=== PATIENT | male | born 1935 | race Caucasian/White ===

== ENCOUNTER 2017-04-17 20:31 | Inpatient (IN) | payer MEDICARE, OTHER ==
[~2017-04-17] VITALS: Ht 180.3 cm; Wt 84.4 kg
--- NOTE | 2017-04-17 20:41 | PHYS DOC ---
Adult General Chief Complaint Chief Complaint: hyponatremia HPI HPI Patient is a 82 year old male who presents with hyponatremia. According to EMS he had labs drawn showed a sodium of 110. Patient states he's had a history of pneumonia but is not being treated for. He denies any fevers chills nausea or vomiting. He wants to be at [facility] and does not know why he's at [facility]. He states it he's had a kiss mixer from [facility] in the past who has an ablation to help his A. fib and his A. fib returned and he developed a stroke from that. His daughter from [facility] who states he was just started on Prozac within 2-3 weeks ago. Review of Systems Review of Systems Constitutional: Denies fever or chills [] Eyes: Denies change in visual acuity, redness, or eye pain [] HENT: Denies nasal congestion or sore throat [] Respiratory: Denies cough or shortness of breath [] Cardiovascular: No additional information not addressed in HPI [] GI: Denies abdominal pain, nausea, vomiting, bloody stools or diarrhea [] : Denies dysuria or hematuria [] Musculoskeletal: Denies back pain or joint pain [] Integument: Denies rash or skin lesions [] Neurologic: Denies headache, focal weakness or sensory changes [] Endocrine: Denies polyuria or polydipsia [] Current Medications Current Medications Allergies Allergies Allergies Coded Allergies Type Severity Reaction Last Updated Verified erythromycin base Allergy Intermediate Rash 04/17/17 Yes niacin Allergy Intermediate Rash 04/17/17 Yes tetracycline Allergy Intermediate Rash 04/17/17 Yes Physical Exam Physical Exam Constitutional: Well developed, well nourished, no acute distress, non-toxic appearance. [] HENT: Normocephalic, atraumatic, bilateral external ears normal, oropharynx moist, no oral exudates, nose normal. [] Eyes: PERRLA, EOMI, conjunctiva normal, no discharge. [] Neck: Normal range of motion, no tenderness, supple, no stridor. [] Cardiovascular:Heart rate regular rhythm, no murmur [] Lungs & Thorax: Bilateral breath sounds clear to auscultation [] Abdomen: Bowel sounds normal, soft, no tenderness, no masses, no pulsatile masses. [] Skin: Warm, dry, no erythema, no rash. [] Back: No tenderness, no CVA tenderness. [] Extremities: No tenderness, no cyanosis, no clubbing, ROM intact, no edema. [] Neurologic: Alert and interactive, very stroke with left-sided deficit noted. Psychologic: Affect normal, judgement normal, mood normal. [] Current Patient Data Vital Signs Vital Signs Date Time Temp Pulse Resp B/P (MAP) Pulse Ox O2 Delivery O2 Flow Rate FiO2 04/17/17 20:35 97.8 55 18 143/67 (92) 93 Room Air 97.8 Lab Values Laboratory Tests Test 04/17/17 20:40 White Blood Count 5.8 x10^3/uL (4.0-11.0) Red Blood Count 4.30 x10^6/uL (4.30-5.70) Hemoglobin 13.4 g/dL (13.0-17.5) Hematocrit 39.6 % (39.0-53.0) Mean Corpuscular Volume 92 fL (79-100) Mean Corpuscular Hemoglobin 31 pg (25-35) Mean Corpuscular Hemoglobin Concent 34 g/dL (31-37) Red Cell Distribution Width 14.0 % (11.5-14.5) Platelet Count 211 x10^3/uL (140-400) Neutrophils (%) (Auto) 64 % (31-73) Lymphocytes (%) (Auto) 21 % (24-48) L Monocytes (%) (Auto) 10 % (0-9) H Eosinophils (%) (Auto) 5 % (0-3) H Basophils (%) (Auto) 1 % (0-3) Neutrophils # (Auto) 3.7 x10^3uL (1.8-7.7) Lymphocytes # (Auto) 1.2 x10^3/uL (1.0-4.8) Monocytes # (Auto) 0.6 x10^3/uL (0.0-1.1) Eosinophils # (Auto) 0.3 x10^3/uL (0.0-0.7) Basophils # (Auto) 0.1 x10^3/uL (0.0-0.2) Prothrombin Time 14.6 SEC (11.7-14.0) H Prothrombin Time INR 1.2 (0.8-1.1) H Sodium Level 121 mmol/L (136-145) L Potassium Level 4.8 mmol/L (3.5-5.1) Chloride Level 86 mmol/L (98-107) L Carbon Dioxide Level 32 mmol/L (21-32) Anion Gap 3 (6-14) L Blood Urea Nitrogen 25 mg/dL (8-26) Creatinine 0.8 mg/dL (0.7-1.3) Estimated GFR (Cockcroft-Gault) 93.0 Glucose Level 93 mg/dL (70-99) Calcium Level 8.9 mg/dL (8.5-10.1) Magnesium Level 1.8 mg/dL (1.8-2.4) Total Bilirubin 0.6 mg/dL (0.2-1.0) Direct Bilirubin 0.2 mg/dL (0.0-0.2) Aspartate Amino Transferase (AST) 27 U/L (15-37) Alanine Aminotransferase (ALT) 45 U/L (16-63) Alkaline Phosphatase 98 U/L (46-116) Creatine Kinase 96 U/L (39-308) Creatine Kinase MB (Mass) 7.1 ng/mL (0.0-3.6) H Creatine Kinase MB Relative Index 7.4 % (0-4) H Troponin I Quantitative < 0.017 ng/mL (0.000-0.055) PJ-Cpv-V-Type Natriuretic Peptide 225 pg/mL (0-449) Total Protein 7.3 g/dL (6.4-8.2) Albumin 3.1 g/dL (3.4-5.0) L Thyroid Stimulating Hormone (TSH) 9.650 uIU/mL (0.358-3.74) H Laboratory Tests 04/17/17 20:40 Laboratory Tests 04/17/17 20:40 EKG EKG EKG shows irregular rhythm with rate of 61 bpm without any associated elevations or T-wave inversions, left axis noted, QTC 453 ms, as interpreted by me. Radiology/Procedures Radiology/Procedures [] Impressions: Hyponatremia Anoxic brain injury Hypertension A. fib PEG tube dependent feedings Course & Med Decision Making Course & Med Decision Making Pertinent Labs and Imaging studies reviewed. (See chart for details) Upon review of his med list he is on Prozac. His lips are extremely dry. He is being started on 100 mL of normal saline per hour per Dr. Olivia's request and being admitted to the hospital with nephrology consultation. Spoke with Dr. Mccarty regarding consultation for his hypo-nature anemia. Dragon Disclaimer Dragon Disclaimer This electronic medical record was generated, in whole or in part, using a voice recognition dictation system. CHIRAG GARG MD Apr 17, 2017 20:41
[2017-04-17 20:46] LABS: BASO # 0.1 x10^3/uL (0.0-0.2); BASO % 1 % (0-3); EOS % 5 % (0-3); HEMATOCRIT 39.6 % (39.0-53.0); HEMOGLOBIN 13.4 g/dL (13.0-17.5); LYMPH # 1.2 x10^3/uL (1.0-4.8); LYMPH % 21 % (24-48); MEAN CORPUSCULAR HEMOGLOBIN 31 pg (25-35); MEAN CORPUSCULAR HGB CONC 34 g/dL (31-37); MEAN CORPUSCULAR VOLUME 92 fL (79-100); MONO % 10 % (0-9); NEUT % 64 % (31-73); PLATELET COUNT 211 x10^3/uL (140-400); WHITE BLOOD COUNT 5.8 x10^3/uL (4.0-11.0)
[2017-04-17 21:08] LABS: CALCIUM 8.9 mg/dL (8.5-10.1); CREATININE 0.8 mg/dL (0.7-1.3); POTASSIUM 4.8 mmol/L (3.5-5.1)
[2017-04-17 21:10] LABS: INR 1.2 (0.8-1.1); PROTHROMBIN TIME PATIENT 14.6 SEC (11.7-14.0)
[2017-04-17 21:14] LABS: ALBUMIN 3.1 g/dL (3.4-5.0); DIRECT BILIRUBIN 0.2 mg/dL (0.0-0.2); MAGNESIUM 1.8 mg/dL (1.8-2.4); TOTAL BILIRUBIN 0.6 mg/dL (0.2-1.0); TOTAL PROTEIN 7.3 g/dL (6.4-8.2)
[2017-04-17 21:24] LABS: CKMB MASS 7.1 ng/mL (0.0-3.6)
[2017-04-17] MEDS ORDERED: IV NORMAL SALINE 1000ML BAG 1,000 ML IV ONE (21:45)
[2017-04-17] MEDS ORDERED: GABA600T2 PO (21:56)
[2017-04-17] MEDS ORDERED: BUSP5TAB PO (21:56)
[2017-04-17] MEDS ORDERED: GUAI473L15 PO (21:56)
[2017-04-17] MEDS ORDERED: DIGO250T17 PO (21:56)
[2017-04-17] MEDS ORDERED: FLUT9.9S NS (21:56)
[2017-04-17] MEDS ORDERED: DICL100G18 TP (21:56)
[2017-04-17] MEDS ORDERED: APIX5TAB PO (21:56)
[2017-04-17] MEDS ORDERED: HYDR1.5C TP (21:56)
[2017-04-17] MEDS ORDERED: ACET500T68 PO (21:56)
[2017-04-17] MEDS ORDERED: CHLO15MO2 PO (21:56)
[2017-04-17] MEDS ORDERED: MELA3TAB2 PO (21:56)
[2017-04-17] MEDS ORDERED: LACT1CAP21 PO (21:56)
[2017-04-17] MEDS ORDERED: AMIO200T2 PO (21:56)
[2017-04-17] MEDS ORDERED: METO25TA4 PO (22:22)
[2017-04-17] MEDS ORDERED: ASCO500T3 PO (22:22)
[2017-04-17] MEDS ORDERED: SIME80TA14 PO (22:22)
[2017-04-17] MEDS ORDERED: POLY17PO29 PO (22:22)
[2017-04-17] MEDS ORDERED: MODA100T2 PO (22:22)
[2017-04-17] MEDS ORDERED: PANT40TA5 PO (22:22)
[2017-04-17] MEDS ORDERED: TURM1TAB PO (22:22)
[2017-04-17] MEDS ORDERED: ACET600C3 PO (22:22)
[2017-04-17 23:10] VITALS: BP 116/67
[2017-04-18] VITALS (24 sets, daily range): BP systolic 106–166; BP diastolic 50–72
[2017-04-18] MEDS ORDERED: fentaNYL PF VIAL 100 MCG/2 ML VIAL IV PRN ×2 (00:30→01:00)
[2017-04-18] MEDS: GABAPENTIN 250 MG/5 ML ORAL SOLUTION. PEG SCH ×4 (01:02→20:59)
[2017-04-18 06:29] LABS: BASO % 1 % (0-3); EOS % 5 % (0-3); HEMATOCRIT 39.7 % (39.0-53.0); HEMOGLOBIN 13.5 g/dL (13.0-17.5); LYMPH # 1.1 x10^3/uL (1.0-4.8); LYMPH % 19 % (24-48); MEAN CORPUSCULAR HEMOGLOBIN 32 pg (25-35); MEAN CORPUSCULAR HGB CONC 34 g/dL (31-37); MEAN CORPUSCULAR VOLUME 93 fL (79-100); MONO % 12 % (0-9); NEUT % 64 % (31-73); PLATELET COUNT 184 x10^3/uL (140-400); RED BLOOD COUNT 4.28 x10^6/uL (4.30-5.70); RED CELL DISTRIBUTION WIDTH 13.8 % (11.5-14.5); WHITE BLOOD COUNT 5.9 x10^3/uL (4.0-11.0)
[2017-04-18 06:40] LABS: CALCIUM 8.9 mg/dL (8.5-10.1); CREATININE 0.8 mg/dL (0.7-1.3); POTASSIUM 4.3 mmol/L (3.5-5.1)
--- NOTE | 2017-04-18 08:13 | RAD ---
Portable chest, 04/17/2017: History: Altered mental status The heart size and pulmonary vascularity are normal. The lungs are clear. There is no evidence of pleural fluid. Mild spurring is present in the spine. IMPRESSION: No acute cardiopulmonary abnormality is detected.
[2017-04-18] MEDS ORDERED: IV NORMAL SALINE 1000ML BAG 1,000 ML IV ONE (09:00)
[2017-04-18] MEDS ORDERED: HYDROCORTISONE 1% TOPICAL OINTMENT 30GM TUBE. TP PRN (10:45)
[2017-04-18] MEDS ORDERED: PANTOPRAZOLE 40 MG TABLET.DR. PO SCH (11:00)
[2017-04-18] MEDS ORDERED: busPIRone 5 MG TABLET. PO SCH (11:00)
[2017-04-18] MEDS ORDERED: ASCORBIC ACID 500 MG TABLET PO SCH (11:00)
[2017-04-18] MEDS: FLUTICASONE 50MCG/NASAL SPRAY 16GM BOTTLE. NS SCH (11:00)
[2017-04-18] MEDS ORDERED: AMIODARONE HCL 200 MG TABLET. PO SCH (11:00)
[2017-04-18] MEDS ORDERED: DIGOXIN 250 MCG TABLET. PO SCH (11:00)
[2017-04-18] MEDS ORDERED: ACETAMINOPHEN 500 MG TABLET PO SCH (11:00)
[2017-04-18] MEDS ORDERED: METOPROLOL TART IMMED RELEASE 25 MG TABLET. PO SCH (11:00)
--- NOTE | 2017-04-18 11:07 | PDOC2 ---
CONSULT Date of Consult Date of Consult DATE: 04/18/17 TIME: 10:47 Reason for Consult Reason for Consult: HypoNatremia Referring Physician Referring Physician: Dr Olivia Source Source: Patient Current Medications Current Medications Current Medications Sodium Chloride 1,000 ml @ 100 mls/hr 1X ONCE IV Last administered on 21:58; Start 04/17/17 at 21:45; Stop 04/18/17 at 07:44; Status DC Gabapentin (Neurontin) 500 mg [id number] PEG Last administered on 04/18/17 09:51; Start 04/18/17 at 01:00 Fentanyl Citrate (Fentanyl 2ml Vial) 25 mcg PRN Q3HRS PRN IV PAIN Last administered on 04/18/17 01:03; Start 04/18/17 at 00:30 Fentanyl Citrate (Fentanyl 2ml Vial) 50 mcg PRN Q3HRS PRN IV PAIN; Start at 01:00 Sodium Chloride 1,000 ml @ 100 mls/hr 1X ONCE IV Last administered on 09:51; Start 04/18/17 at 09:00; Stop 04/18/17 at 18:59 Active Scripts Active Reported Ascorbic Acid 500 Mg Tablet 500 Mg PO Tumersaid Tablet (Turm/Ging/Ej/Yuc/Darrick/Tatyana/Hor) 1 Each Tablet 1 Each PO Simethicone 80 Mg Tab.chew 80 Mg PO Pantoprazole Sodium 40 Mg Tablet. 1 Tab PO DAILY M-Ojuviv-V-Cysteine (Acetylcysteine) 600 Mg Capsule 600 Mg PO Modafinil 100 Mg Tablet 100 Mg PO Miralax (Polyethylene Glycol 3350) 17 Gm Powd.pack 1 Packet PO DAILY Metoprolol Tartrate 25 Mg Tablet 1 Tab PO BID Melatonin 3 Mg Tablet 5 Mg PO Lanoxin (Digoxin) 250 Mcg Tablet 1 Tab PO DAILY Culturelle (Lactobacillus Rhamnosus Gg) 1 Each Capsule 1 Each PO Hydrocortisone 1.5 Gm Cream.pack 1.5 Gm TP Guaifenesin Ac Cough Syrup (Guaifenesin/Codeine Phosphate) 473 Ml Liquid 5 Ml PO Q4HRS Gabapentin 600 Mg Tablet 600 Mg PO TID Flonase Allergy Relief (Fluticasone Propionate) 9.9 Ml [place].susp 2 Sprays NS DAILY Eliquis (Apixaban) 5 Mg Tablet 5 Mg PO Voltaren (Diclofenac Sodium) 100 Gm Gel..gram. 1 Gm TP QID Peridex (Chlorhexidine Gluconate) 15 Ml Mouthwash 15 Ml PO BID Buspirone Hcl 5 Mg Tablet 1 Tab PO BID Amiodarone Hcl 200 Mg Tablet 1 Tab PO DAILY Acetaminophen 500 Mg Tablet 1 Tab PO BID Allergies Allergies: Coded Allergies: erythromycin base (Verified Allergy, Intermediate, Rash, 04/17/17) RASH BETWEEN TESTICLES AND "I GET VERY HOT" niacin (Verified Allergy, Intermediate, Rash, 04/17/17) RASH BETWEEN TESTICLES AND "I GET VERY HOT" tetracycline (Verified Allergy, Intermediate, Rash, 04/17/17) RASH BETWEEN TESTICLES AND "I GET VERY HOT" ROS Review of System Pt is [id number] with ROS and often uses expletives during my conversation - keeps asking for a Dr Garcia Physical Exam Physical Exam General Appearance: Awake Alert Oriented x ? In no Distress Eyes: VIsion Unchanged Conjunctiva Normal EN: No EN Drainage Mucous Memb. moist Neck: no JVD no JVP Supple no Thyromegaly CVS: S1 S2 no Murmur No Gallop No Rub no Edema Resp: no Rales no Rhonchi no Acc. Muscle use GI: BAS +ve NO Bruit Non Tender Non Distended : no CVA tenderness; ? Suprapubic Tenderness SKIN: no visible petechial Rashes Breast Exam deferred Mu.Sk: limited ROM + Muscle Atrophy - does not follow commands well Heme: Unable to palpate Obvious LAD nopalp Splenomegaly NEURO: Good Strength on the rt upper ext ; left sided ? Hemiparesis; Psych: ? Depressed no Active hallucination - unable to accurately assess given lack of co-operation Vital Signs Vital Signs Date Time Temp Pulse Resp B/P (MAP) Pulse Ox O2 Delivery O2 Flow Rate FiO2 04/18/17 10:00 58 18 139/70 (93) 97 Nasal Cannula 3.0 04/18/17 08:00 98.3 98.3 Assessment & Plan hypoNatremia - presumably due to recent initiation of SSRi on - Na was WNL prior to that. Appears to have corrected slightly from Prior reported levels of 118. Was 120 on the last labs on 04/06 as noted from [facility] reports. TSH noted to be AbN - if no further improvement with IV NS then he may need some 3% . Given some chronicity - I would like to correct this slowly at 6-8 mEq/day. Labs Labs Laboratory Tests Test 04/17/17 20:40 04/18/17 03:45 White Blood Count 5.8 x10^3/uL (4.0-11.0) 5.9 x10^3/uL (4.0-11.0) Red Blood Count 4.30 x10^6/uL (4.30-5.70) 4.28 x10^6/uL (4.30-5.70) Hemoglobin 13.4 g/dL (13.0-17.5) 13.5 g/dL (13.0-17.5) Hematocrit 39.6 % (39.0-53.0) 39.7 % (39.0-53.0) Mean Corpuscular Volume 92 fL (79-100) 93 fL (79-100) Mean Corpuscular Hemoglobin 31 pg (25-35) 32 pg (25-35) Mean Corpuscular Hemoglobin Concent 34 g/dL (31-37) 34 g/dL (31-37) Red Cell Distribution Width 14.0 % (11.5-14.5) 13.8 % (11.5-14.5) Platelet Count 211 x10^3/uL (140-400) 184 x10^3/uL (140-400) Neutrophils (%) (Auto) 64 % (31-73) 64 % (31-73) Lymphocytes (%) (Auto) 21 % (24-48) 19 % (24-48) Monocytes (%) (Auto) 10 % (0-9) 12 % (0-9) Eosinophils (%) (Auto) 5 % (0-3) 5 % (0-3) Basophils (%) (Auto) 1 % (0-3) 1 % (0-3) Neutrophils # (Auto) 3.7 x10^3uL (1.8-7.7) 3.8 x10^3uL (1.8-7.7) Lymphocytes # (Auto) 1.2 x10^3/uL (1.0-4.8) 1.1 x10^3/uL (1.0-4.8) Monocytes # (Auto) 0.6 x10^3/uL (0.0-1.1) 0.7 x10^3/uL (0.0-1.1) Eosinophils # (Auto) 0.3 x10^3/uL (0.0-0.7) 0.3 x10^3/uL (0.0-0.7) Basophils # (Auto) 0.1 x10^3/uL (0.0-0.2) 0.0 x10^3/uL (0.0-0.2) Prothrombin Time 14.6 SEC (11.7-14.0) Prothromb Time International Ratio 1.2 (0.8-1.1) Sodium Level 121 mmol/L (136-145) 121 mmol/L (136-145) Potassium Level 4.8 mmol/L (3.5-5.1) 4.3 mmol/L (3.5-5.1) Chloride Level 86 mmol/L (98-107) 88 mmol/L (98-107) Carbon Dioxide Level 32 mmol/L (21-32) 28 mmol/L (21-32) Anion Gap 3 (6-14) 5 (6-14) Blood Urea Nitrogen 25 mg/dL (8-26) 22 mg/dL (8-26) Creatinine 0.8 mg/dL (0.7-1.3) 0.8 mg/dL (0.7-1.3) Estimated GFR (Cockcroft-Gault) 93.0 93.0 Glucose Level 93 mg/dL (70-99) 74 mg/dL (70-99) Calcium Level 8.9 mg/dL (8.5-10.1) 8.9 mg/dL (8.5-10.1) Magnesium Level 1.8 mg/dL (1.8-2.4) Total Bilirubin 0.6 mg/dL (0.2-1.0) Direct Bilirubin 0.2 mg/dL (0.0-0.2) Aspartate Amino Transf (AST/SGOT) 27 U/L (15-37) Alanine Aminotransferase (ALT/SGPT) 45 U/L (16-63) Alkaline Phosphatase 98 U/L (46-116) Creatine Kinase 96 U/L (39-308) Creatine Kinase MB (Mass) 7.1 ng/mL (0.0-3.6) Creatine Kinase MB Relative Index 7.4 % (0-4) Troponin I Quantitative < 0.017 ng/mL (0.000-0.055) LM-Jbl-K-Type Natriuretic Peptide 225 pg/mL (0-449) Total Protein 7.3 g/dL (6.4-8.2) Albumin 3.1 g/dL (3.4-5.0) Thyroid Stimulating Hormone (TSH) 9.650 uIU/mL (0.358-3.74) Laboratory Tests Test 04/17/17 20:40 04/18/17 03:45 White Blood Count 5.8 x10^3/uL (4.0-11.0) 5.9 x10^3/uL (4.0-11.0) Red Blood Count 4.30 x10^6/uL (4.30-5.70) 4.28 x10^6/uL (4.30-5.70) Hemoglobin 13.4 g/dL (13.0-17.5) 13.5 g/dL (13.0-17.5) Hematocrit 39.6 % (39.0-53.0) 39.7 % (39.0-53.0) Mean Corpuscular Volume 92 fL (79-100) 93 fL (79-100) Mean Corpuscular Hemoglobin 31 pg (25-35) 32 pg (25-35) Mean Corpuscular Hemoglobin Concent 34 g/dL (31-37) 34 g/dL (31-37) Red Cell Distribution Width 14.0 % (11.5-14.5) 13.8 % (11.5-14.5) Platelet Count 211 x10^3/uL (140-400) 184 x10^3/uL (140-400) Neutrophils (%) (Auto) 64 % (31-73) 64 % (31-73) Lymphocytes (%) (Auto) 21 % (24-48) 19 % (24-48) Monocytes (%) (Auto) 10 % (0-9) 12 % (0-9) Eosinophils (%) (Auto) 5 % (0-3) 5 % (0-3) Basophils (%) (Auto) 1 % (0-3) 1 % (0-3) Neutrophils # (Auto) 3.7 x10^3uL (1.8-7.7) 3.8 x10^3uL (1.8-7.7) Lymphocytes # (Auto) 1.2 x10^3/uL (1.0-4.8) 1.1 x10^3/uL (1.0-4.8) Monocytes # (Auto) 0.6 x10^3/uL (0.0-1.1) 0.7 x10^3/uL (0.0-1.1) Eosinophils # (Auto) 0.3 x10^3/uL (0.0-0.7) 0.3 x10^3/uL (0.0-0.7) Basophils # (Auto) 0.1 x10^3/uL (0.0-0.2) 0.0 x10^3/uL (0.0-0.2) Prothrombin Time 14.6 SEC (11.7-14.0) Prothromb Time International Ratio 1.2 (0.8-1.1) Sodium Level 121 mmol/L (136-145) 121 mmol/L (136-145) Potassium Level 4.8 mmol/L (3.5-5.1) 4.3 mmol/L (3.5-5.1) Chloride Level 86 mmol/L (98-107) 88 mmol/L (98-107) Carbon Dioxide Level 32 mmol/L (21-32) 28 mmol/L (21-32) Anion Gap 3 (6-14) 5 (6-14) Blood Urea Nitrogen 25 mg/dL (8-26) 22 mg/dL (8-26) Creatinine 0.8 mg/dL (0.7-1.3) 0.8 mg/dL (0.7-1.3) Estimated GFR (Cockcroft-Gault) 93.0 93.0 Glucose Level 93 mg/dL (70-99) 74 mg/dL (70-99) Calcium Level 8.9 mg/dL (8.5-10.1) 8.9 mg/dL (8.5-10.1) Magnesium Level 1.8 mg/dL (1.8-2.4) Total Bilirubin 0.6 mg/dL (0.2-1.0) Direct Bilirubin 0.2 mg/dL (0.0-0.2) Aspartate Amino Transf (AST/SGOT) 27 U/L (15-37) Alanine Aminotransferase (ALT/SGPT) 45 U/L (16-63) Alkaline Phosphatase 98 U/L (46-116) Creatine Kinase 96 U/L (39-308) Creatine Kinase MB (Mass) 7.1 ng/mL (0.0-3.6) Creatine Kinase MB Relative Index 7.4 % (0-4) Troponin I Quantitative < 0.017 ng/mL (0.000-0.055) OR-Bsn-D-Type Natriuretic Peptide 225 pg/mL (0-449) Total Protein 7.3 g/dL (6.4-8.2) Albumin 3.1 g/dL (3.4-5.0) Thyroid Stimulating Hormone (TSH) 9.650 uIU/mL (0.358-3.74) HERB BOWSER MD Apr 18, 2017 11:07
[2017-04-18] MEDS: IV NORMAL SALINE 1000ML BAG 1,000 ML IV SCH ×2 (11:15→20:55)
--- NOTE | 2017-04-18 11:54 | EKG ---
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
[2017-04-18] MEDS ORDERED: SCOPOLAMINE 1.5MG PATCH. TD SCH (12:00)
[2017-04-18] MEDS ORDERED: guaiFENesin/CODEINE 100mg/10mg 5 ML LIQUID PO SCH (12:00)
[2017-04-18] MEDS: POLYETHYLENE GLYCOL 3350 17 GM PACKET. PO SCH (12:14)
[2017-04-18] MEDS: ACETAMINOPHEN 650 MG/20.3 ML SOLUTION. PEG PRN (12:16)
[2017-04-18] MEDS: ASCORBIC ACID 500 MG TABLET PEG SCH (12:17)
[2017-04-18] MEDS: LACTOBACILLUS ACIDOPH & BULGAR 1 TABLET. PO SCH ×2 (12:17→20:55)
[2017-04-18] MEDS: APIXABAN 5 MG TABLET. PO SCH ×2 (12:17→20:55)
[2017-04-18] MEDS: DIGOXIN 250 MCG TABLET. PEG SCH (12:17)
[2017-04-18] MEDS: METOPROLOL TART IMMED RELEASE 25 MG TABLET. PEG SCH ×2 (12:18→21:00)
[2017-04-18] MEDS: busPIRone 5 MG TABLET. PEG SCH ×2 (12:18→20:55)
[2017-04-18] MEDS: AMIODARONE HCL 200 MG TABLET. PEG SCH (12:18)
[2017-04-18] MEDS: SIMETHICONE 80 MG TAB.CHEW PEG SCH ×3 (12:18→20:55)
[2017-04-18] MEDS: PANTOPRAZOLE IV PUSH 40 MG VIAL. IVP SCH (12:19)
[2017-04-18] MEDS: CHLORHEXIDINE 0.12% 15 ML MOUTHWASH. SWSP SCH ×2 (12:19→20:55)
[2017-04-18] MEDS: guaiFENesin/CODEINE 100mg/10mg 5 ML LIQUID PEG SCH ×3 (12:19→20:55)
[2017-04-18 12:47] LABS: BILIRUBIN,URINE NEGATIVE (NEG); GLUCOSE,URINE NEGATIVE (NEG); NITRITE,URINE NEGATIVE (NEG); PH,URINE 7.5; PROTEIN,URINE NEGATIVE (NEG-TRACE); UROBILINOGEN,URINE 0.2 mg/dL (0.2 mg/dL)
[2017-04-18 12:51] LABS: BARBITURATES NEG (NEG); BENZODIAZEPINES NEG (NEG); CANNABINOIDS NEG (NEG); COCAINE NEG (NEG); METHADONE NEG (NEG); OPIATES NEG (NEG); PHENCYCLIDINE NEG (NEG)
[2017-04-18 12:58] LABS: BACTERIA,URINE FEW /HPF (0-FEW); RBC,URINE 0 /HPF (0-2); SQUAMOUS EPITHELIAL CELL,UR FEW /LPF; WBC,URINE 0 /HPF (0-4)
[2017-04-18] MEDS ORDERED: SIMETHICONE 80 MG TAB.CHEW PO SCH (13:00)
[2017-04-18] MEDS: DICLOFENAC SODIUM 1% TOPICAL GEL 100GM TUBE. TP SCH ×3 (13:00→21:01)
[2017-04-18] MEDS ORDERED: GABAPENTIN 300 MG CAPSULE. PO SCH (14:00)
--- NOTE | 2017-04-18 14:56 | HP ---
ADMIT DATE: 04/18/2017 HISTORY OF PRESENT ILLNESS: The patient is an 82-year-old male patient, a resident at [facility] who was noted to have a low sodium of 118 mEq and therefore a decision was made to transfer him to [facility] for further evaluation. The lab work in [facility] confirmed that his sodium is actually 121 mEq per liter, transpired that he was started recently on Prozac. We did discontinue his Prozac and was admitted to the ICU, started on IV normal saline. I did consult Dr. Mccarty, the assignment clerk, to assist with the management of his hyponatremia. The patient himself complains of pain in his left side, including both upper and lower extremities, and also recurrent bouts of cough, but denied any headache. He did complain of nausea and stated that he vomited a few times. PAST MEDICAL HISTORY: Significant for atrial fibrillation, peptic ulcer disease, right middle cerebral artery territory infarct with left-sided hemiplegia, dysphagia, hypertension, acute cholecystitis. PAST SURGICAL HISTORY: Significant for PEG tube placement, cholecystostomy tube placement and removal. FAMILY HISTORY: Positive for coronary artery disease. SOCIAL HISTORY: He is , never smoked, does not drink alcohol or use any recreational drugs. He has 2 supportive daughters. ALLERGIES: HE IS ALLERGIC TO ERYTHROMYCIN, NIACIN, AND TETRACYCLINE. MEDICATIONS: He is currently on the following medications: He is on acetaminophen 500 mg twice a day, acetylcysteine 600 mg twice a day, amiodarone 200 mg once a day, apixaban 5 mg twice a day, ascorbic acid 500 mg daily, buspirone 5 mg twice a day, chlorhexidine gluconate 15 mL swish and spit twice a day, diclofenac sodium for Voltaren gel applied to the right knee 4 times a day, digoxin 250 mcg daily, Flonase 2 sprays to each nostril once a day, gabapentin 600 mg 3 times a day, guaifenesin with codeine phosphate 5 mL every 4 hours as needed, hydrocortisone cream applied topically twice a day, lactobacillus rhamnosus 1 capsule once a day, melatonin 5 mg at bedtime, metoprolol tartrate 25 mg twice a day, modafinil 100 mg p.o. daily, Protonix 40 mg daily, polyethylene glycol 17 grams once a day and simethicone 80 mg 4 times a day. He is also on Chimera seed tablets 1 tablet once a day. REVIEW OF SYSTEMS: As per history of present illness. PHYSICAL EXAMINATION: GENERAL: On arrival to the Emergency Room, he looked well and was clearly in no apparent respiratory distress, pale, but no jaundice, cyanosis, or thyromegaly. No jugular venous distension. No lower limb edema. VITAL SIGNS: His heart rate was 54, blood pressure was 143/67, temperature was 97.8, respiratory rate was 18 and oxygen saturation was 93% on room air. HEAD, EYES, EARS, NOSE, THROAT: Normocephalic, atraumatic. NECK: Supple. HEART: Showed normal first and second heart sounds with no gallop, rub or murmur. CHEST: Clear to auscultation. No crepitation or rhonchi. ABDOMEN: Distended, soft with gastrostomy tube in place. No guarding or rigidity. No organomegaly. All the hernial orifices intact. Bowel sounds normal. NEUROLOGIC: He was awake, alert, responding appropriately. He has right middle cerebral artery territory infarct with left-sided hemiplegia. He has also severe dysphagia. LABORATORY DATA: On arrival showed a serum sodium 121, potassium 4.8, chloride 86, bicarbonate 32, anion gap of 3, BUN 25, creatinine 0.8, estimated GFR was 93 mL per minute, his glucose 93, calcium was 8.9, magnesium was 1.8. Total bilirubin, AST, ALT, alkaline phosphatase were normal. His total protein was 7.3, albumin was 3.1. TSH was slightly elevated at 9.65. His white cell count was 5800, hemoglobin 13, hematocrit 39, MCV 92, and platelet count of 211,000 with normal manual differential. His prothrombin time was 14.6, INR of 1.2. Chest x-ray showed that the heart size and pulmonary vascularity are normal. The lungs are clear. There is no evidence of pleural fluid. SUMMARY: This is an 82-year-old male patient who was admitted with hyponatremia. His serum sodium was only 118 mEq per liter on lab work done at the [facility]. 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 He is not on any diuretics. There is no history of recurrent bouts of nausea, vomiting or diarrhea. Other medical problems include right middle cerebral artery territory infarct with left side hemiplegia and dysphagia. He has atrial fibrillation, rate controlled, on metoprolol and amiodarone. He is also well anticoagulated on apixaban. He has history of peptic ulcer disease, history of Clostridium difficile colitis and cholecystitis, was treated with cholecystostomy tube placement and removal. 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 He has also severe pain in his right knee with flexion contracture. I have consulted Dr. Aragon to inject his right knee and Dr. Damian Rebollar to evaluate and assist with pain management of his left side, and also speech therapist to arrange for video swallowing evaluation. I will check his T3, T4, free T4 and repeat his labs tomorrow. He is now on normal saline. We might have to see if this will improve his sodium, he might need to be on fluid restriction. JENNIFER MCKEON MD DR: MARIANA/zhou JOB#: [id number] / [id number]
--- NOTE | 2017-04-18 19:50 | CONS ---
DATE OF CONSULTATION: PRIMARY PHYSICIAN: Dr. Olivia. REASON FOR CONSULTATION: Hyponatremia. HISTORY OF PRESENT ILLNESS: The patient is an 82-year-old gentleman from a local alf. He does not appear to be fully oriented at this time. He is noted to have had atrial fibrillation and status post ablation, thereafter developed a stroke, and is noted to have left hemiplegia with thalamic syndrome and ____ associated problems. He was started on Prozac about 2-3 weeks ago, i.e., 03/23/2017. His sodium was somewhat low on April 06 at 120. Based on records from the alf, sodium 125 and now has dropped down to 120. We were asked to see him for the same. There was some report about a sodium of 118. TSH is noted to be mildly elevated. The patient is not very cooperative with his history. He is asking for Dr. Garcia. He does use a lot of crosswords at times and is not very forthcoming with his history. It is unclear to me if the patient is nauseated or just coughing his secretions. PAST MEDICAL HISTORY: Significant for issues with, 1. Dysphagia and has failed numerous swallow evals. 2. History of CVA as mentioned previously with left hemiparesis and left thalamic syndrome. 3. Seizure disorder as a child. 4. Ablation for AFib, on anticoagulation. 5. History of incontinence and prostate related problems, urinary urgency. 6. Questionable history of rheumatoid arthritis. SOCIAL HISTORY: Nonsmoker, nondrinker, lives at a local alf. FAMILY HISTORY: Unable to be obtained from the patient. REVIEW OF SYSTEMS: He is unable to provide me much in terms of review of systems. For rest of the details, see electronic records. HERB BOWSER MD DR: AIXA/zhou JOB#: [id number] / [id number]
--- NOTE | 2017-04-18 19:55 | PN ---
DATE: 04/18/2017 SUBJECTIVE: The patient was admitted yesterday because of abnormal lab work with a serum sodium, which was only 118 mEq per liter. He was apparently started on Prozac about 3 weeks ago and he did complain of some nausea and vomiting, but denied any other complaint. He was evaluated in the Emergency Room and his hyponatremia was confirmed with a serum sodium of 121. He was started on normal saline at 100 mL per hour. However, as of this morning his serum sodium has not really changed, is still 121 mEq per liter. We did consult Dr. Mccarty, the retail service lead merchandiser, to assist in management of his hyponatremia. We discontinued his Prozac. He is not on any diuretic or any other SSRI that might be contributing. His TSH was slightly high at 9.65, so we did order his morning cortisol as well as T3, T4, free T4. Meanwhile, we will continue with normal saline for now. PHYSICAL EXAMINATION: GENERAL: When I saw him this morning, he looked well and was clearly in no apparent respiratory distress, pale, but no jaundice, cyanosis or thyromegaly. No jugular venous distention. No limb edema. VITAL SIGNS: His heart rate was 58, blood pressure 139/70, temperature was 98.3, respiratory rate was 18 and oxygen saturation was 97% on 3 liters of oxygen. HEAD, EYES, EARS, NOSE AND THROAT: Normocephalic, atraumatic. NECK: Supple. HEART: Showed normal first and second heart sounds with no gallop, rub or murmur. CHEST: Clear to auscultation. No crepitation or rhonchi. ABDOMEN: Distended, soft, nontender. No guarding or rigidity. No organomegaly. All hernial orifices intact. Bowel sounds normal. NEUROLOGIC: He was awake, alert, responding appropriately. 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 LABORATORY DATA: His lab work this morning showed a white cell count of 5900, hemoglobin 13.5, hematocrit 39, MCV was 93, and platelet count of 184,000. His chemistry showed a serum sodium 121, potassium 4.3, chloride 88, bicarbonate 28, anion gap of 5, BUN 22, creatinine 0.8, estimated GFR was 93 mL per minute, his glucose 74 and calcium was 8.9. ASSESSMENT: 1. 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 2. Atrial fibrillation, rate controlled, well anticoagulated. He is on amiodarone, metoprolol as well as apixaban. 3. 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 4. Dysphagia for which he has a gastrostomy tube placed and he is currently on tube feeding. 5. The patient has also severe pain due to severe osteoarthritis of the right knee with fixed flexion contracture of the right lower extremity. PLAN: My plan is to consult the retail service lead merchandiser to assist with management of his hyponatremia. I also consulted Dr. Aragon to evaluate his right knee and it if necessary, and Dr. Damian Rebollar to assist with his left-sided thalamic syndrome. Speech therapy to arrange for him to have a video swallowing evaluation. We will arrange for him to have a PICC line placed as he is refusing to allow us to draw blood. JENNIFER MCKEON MD DR: MARIANA/zhou JOB#: [id number] / [id number]
[2017-04-19] VITALS (16 sets, daily range): BP systolic 91–143; BP diastolic 41–76
[2017-04-19] MEDS: guaiFENesin/CODEINE 100mg/10mg 5 ML LIQUID PEG SCH ×7 (01:28→23:49)
[2017-04-19] MEDS: PANTOPRAZOLE IV PUSH 40 MG VIAL. IVP SCH (07:59)
[2017-04-19] MEDS: POLYETHYLENE GLYCOL 3350 17 GM PACKET. PO SCH (08:39)
[2017-04-19] MEDS: ASCORBIC ACID 500 MG TABLET PEG SCH (08:40)
[2017-04-19] MEDS: SIMETHICONE 80 MG TAB.CHEW PEG SCH ×4 (08:40→21:10)
[2017-04-19] MEDS: CHLORHEXIDINE 0.12% 15 ML MOUTHWASH. SWSP SCH ×2 (08:40→21:09)
[2017-04-19] MEDS: LACTOBACILLUS ACIDOPH & BULGAR 1 TABLET. PO SCH ×2 (08:40→21:10)
[2017-04-19] MEDS: busPIRone 5 MG TABLET. PEG SCH ×2 (08:40→21:10)
[2017-04-19] MEDS: APIXABAN 5 MG TABLET. PO SCH ×2 (08:40→21:10)
[2017-04-19] MEDS: DICLOFENAC SODIUM 1% TOPICAL GEL 100GM TUBE. TP SCH ×4 (08:41→22:02)
[2017-04-19] MEDS: AMIODARONE HCL 200 MG TABLET. PEG SCH (08:41)
[2017-04-19] MEDS: IV NORMAL SALINE 1000ML BAG 1,000 ML IV SCH (08:41)
[2017-04-19] MEDS: METOPROLOL TART IMMED RELEASE 25 MG TABLET. PEG SCH ×2 (08:51→21:11)
[2017-04-19] MEDS: DIGOXIN 250 MCG TABLET. PEG SCH (08:51)
[2017-04-19] MEDS: GABAPENTIN 250 MG/5 ML ORAL SOLUTION. PEG SCH ×3 (09:07→21:10)
[2017-04-19 09:38] LABS: CALCIUM 8.4 mg/dL (8.5-10.1); CREATININE 0.8 mg/dL (0.7-1.3); POTASSIUM 4.1 mmol/L (3.5-5.1)
[2017-04-19] MEDS: FLUTICASONE 50MCG/NASAL SPRAY 16GM BOTTLE. NS SCH (09:41)
--- NOTE | 2017-04-19 11:31 | PDOC ---
SUBJECTIVE ROS F/up for HypoNatremia Doing same to litte better OBJECTIVE Vital Signs Vital Signs Date Time Temp Pulse Resp B/P (MAP) Pulse Ox O2 Delivery O2 Flow Rate FiO2 04/19/17 11:00 46 18 105/53 (70) 92 Room Air 04/19/17 09:00 2.0 04/19/17 07:00 97.6 97.6 I & 0 Intake and Output 04/20/17 07:00 Intake Total 0 ml Balance 0 ml Tube Feeding 0 ml PHYSICAL EXAM Physical Exam General Appearance: Asleep In no Distress Eyes: VIsion Unchanged Conjunctiva Normal EN: No EN Drainage Mucous Memb. dryish Neck: no JVD no JVP Supple no Thyromegaly CVS: S1 S2 no Murmur No Gallop No Rub no Edema Resp: no Rales no Rhonchi no Acc. Muscle use GI: BAS +ve NO Bruit Non Tender Non Distended : no CVA tenderness; ? Suprapubic Tenderness Assessment & Plan Hyponatremia - presumably due to recent initiation of SSRi; Some Vol dpeltion cannot be ruled out - na better with IV NS too - wtch on TF for now. Water flushes as ordered ? Vol dpeltion - Watch off of IVF COMMENT/RELEVANT DATA Meds Current Medications Medications (Trade) Dose Ordered Sig/Joselin Start Time Stop Time Status Last Admin Dose Admin Acetaminophen (Tylenol) 650 mg PRN Q6HRS PRN 04/18/17 11:30 04/18/17 12:16 650 MG Amiodarone HCl (Cordarone) 200 mg DAILY 04/18/17 12:00 04/19/17 08:41 200 MG Apixaban (Eliquis) 5 mg BID 04/18/17 11:00 04/19/17 08:40 5 MG Ascorbic Acid (Vitamin C) 500 mg DAILY 04/18/17 12:00 04/19/17 08:40 500 MG Buspirone HCl (Buspar) 5 mg BID 04/18/17 12:00 04/19/17 08:40 5 MG Chlorhexidine Gluconate (Peridex) 15 ml BID 04/18/17 11:00 04/19/17 08:40 15 ML Diclofenac Sodium (Voltaren) 1 cedric QID 04/18/17 13:00 04/19/17 08:41 1 CEDRIC Digoxin (Lanoxin) 250 mcg DAILY 04/18/17 12:00 04/18/17 12:17 250 MCG Fentanyl Citrate (Fentanyl 2ml Vial) 50 mcg PRN Q3HRS PRN 04/18/17 01:00 Fluticasone Propionate (Flonase) 2 spray DAILY 04/18/17 11:00 04/19/17 09:41 2 SPRAY Gabapentin (Neurontin) 600 mg TID 04/18/17 14:00 Cancel Guaifenesin/ Codeine Phosphate (Robitussin Ac) 5 ml Q4HRS 04/18/17 12:00 04/19/17 08:00 5 ML Hydrocortisone (Cortaid) 1 cedric PRN BID PRN 04/18/17 10:45 Lactobacillus Acidophilus (Bacid, Breanna-Bid) 1 tab BID 04/18/17 11:00 04/19/17 08:40 1 TAB Metoprolol Tartrate (Lopressor) 25 mg BID 04/18/17 12:00 04/18/17 12:18 25 MG Pantoprazole Sodium (Protonix Vial) 40 mg DAILYAC 04/18/17 11:30 04/19/17 07:59 40 MG Pantoprazole Sodium (Protonix) 40 mg DAILYAC 04/18/17 11:00 Cancel Polyethylene Glycol (miraLAX PACKET) 17 gm DAILY 04/18/17 11:00 04/19/17 08:39 17 GM Scopolamine (Transderm-Scop) 1 patch Q3DAYS 04/18/17 12:00 04/18/17 12:16 1 PATCH Simethicone (Gas-X) 80 mg QID 04/18/17 13:00 04/19/17 08:40 80 MG Sodium Chloride 1,000 ml @ 75 mls/hr [id number] 04/18/17 11:15 04/19/17 08:41 75 MLS/HR Lab Laboratory Tests Test 04/18/17 12:30 04/18/17 15:38 04/19/17 00:40 04/19/17 08:30 Urine Collection Type Unknown Urine Color Yellow Urine Clarity Clear Urine pH 7.5 Urine Specific [place] 1.015 Urine Protein Negative mg/dL (NEG-TRACE) Urine Glucose (UA) Negative mg/dL (NEG) Urine Ketones (Stick) Negative mg/dL (NEG) Urine Blood Negative (NEG) Urine Nitrite Negative (NEG) Urine Bilirubin Negative (NEG) Urine Urobilinogen Dipstick 0.2 mg/dL (0.2 mg/dL) Urine Leukocyte Esterase Negative (NEG) Urine RBC 0 /HPF (0-2) Urine WBC 0 /HPF (0-4) Urine Squamous Epithelial Cells Few /LPF Urine Amorphous Sediment Present /HPF Urine Bacteria Few /HPF (0-FEW) Urine Mucus Slight /LPF Urine Random Creatinine 40.1 mg/dL (Not Estab.) Urine Random Sodium <60 mmol/L (Not Estab.) Urine Opiates Screen Neg (NEG) Urine Methadone Screen Neg (NEG) Urine Barbiturates Neg (NEG) Urine Phencyclidine Screen Neg (NEG) Urine Amphetamine/Methamphetamine Neg (NEG) Urine Benzodiazepines Screen Neg (NEG) Urine Cocaine Screen Neg (NEG) Urine Cannabinoids Screen Neg (NEG) Urine Ethyl Alcohol Neg (NEG) Sodium Level 127 mmol/L (136-145) 127 mmol/L (136-145) 129 mmol/L (136-145) Uric Acid 2.0 mg/dL (3.5-7.2) Serum Osmolality 260 mOsm/Kg (279-304) Potassium Level 4.1 mmol/L (3.5-5.1) Chloride Level 94 mmol/L (98-107) Carbon Dioxide Level 31 mmol/L (21-32) Anion Gap 4 (6-14) Blood Urea Nitrogen 14 mg/dL (8-26) Creatinine 0.8 mg/dL (0.7-1.3) Estimated GFR (Cockcroft-Gault) 93.0 Glucose Level 95 mg/dL (70-99) Calcium Level 8.4 mg/dL (8.5-10.1) Free Thyroxine 1.25 ng/dL (0.76-1.46) HERB BOWSER MD Apr 19, 2017 11:31
--- NOTE | 2017-04-19 11:45 | PN ---
DATE: 04/19/2017 SUBJECTIVE: The patient is resting slightly propped up in bed, in no apparent respiratory distress. He is awake, alert, denied any complaint. The nursing staff did not voice any concern. His lab work showed his serum sodium is up to 129 mEq per liter. OBJECTIVE: GENERAL: When I examined him, he looked pale, but no jaundice, cyanosis or thyromegaly. No jugular venous distention. No limb edema. VITAL SIGNS: His heart rate was 50, blood pressure was 112/52, temperature was 97.6, respiratory rate was 18 and oxygen saturation was 99% on 2 liters of oxygen. HEAD, EYES, EARS, NOSE AND THROAT: Showed normocephalic, atraumatic. NECK: Supple. HEART: Showed normal first and second heart sounds with no gallop, rub or murmur. CHEST: Clear to auscultation. No crepitation or rhonchi. ABDOMEN: Distended, soft, nontender. NEUROLOGIC: He was awake, alert, responding at times appropriately. He has right middle cerebral artery territory infarct with left side hemiplegia. INS AND OUTS: His intake over the last 24 hours was 2187, output was 1200. LABORATORY DATA: As of this morning, his serum sodium was 129, potassium 4.1, chloride 94, bicarbonate 31, anion gap of 4, BUN 14, creatinine 0.8, estimated GFR was 93 mL per minute. His glucose was 95, calcium was 8.4. His TSH was 9.650, free T4 was 1.25. White cell count was 5900, hemoglobin 13.5, hematocrit 39, MCV 93, and platelet count of 154,000. Urinalysis was unremarkable and was essentially negative. His tox screen was negative. ASSESSMENT AND PLAN: 1. Hyponatremia, most likely due to inappropriate antidiuretic hormone secretion as he was started on Prozac most recently that was discontinued. 2. Atrial fibrillation, rate controlled, well anticoagulated. He is on amiodarone, metoprolol as well as apixaban. 3. Right middle cerebral artery territory infarct with left side hemiplegia and severe pain involving the left side of his body due to thalamic syndrome. 4. Dysphagia for which he has gastrostomy tube placed, is currently on tube feeding. 5. The patient has severe pain in his right knee due to severe osteoarthritis with also fixed flexion contracture of his right lower extremity. We actually sent him to Dr. Parsons for intra-articular injection of steroid, but he refused. My plan is to continue with current plan of management. I did consult Dr. Aragon to evaluate his right knee and Dr. Damian Rebollar to assist with his left-sided thalamic syndrome. We did consult also the speech therapist for video swallowing evaluation and we started him on scopolamine patch to see if that will reduce the excessive secretions as he is unable to swallow his own secretions. JENNIFER MCKEON MD DR: MARIANA/zhou JOB#: [id number] / [id number]
[2017-04-20 03:00] VITALS: BP 124/43
[2017-04-20] MEDS: guaiFENesin/CODEINE 100mg/10mg 5 ML LIQUID PEG SCH ×4 (04:01→16:00)
[2017-04-20 07:00] VITALS: BP 138/54
[2017-04-20] MEDS: PANTOPRAZOLE IV PUSH 40 MG VIAL. IVP SCH (07:58)
[2017-04-20] MEDS: METOPROLOL TART IMMED RELEASE 25 MG TABLET. PEG SCH ×2 (08:37→21:00)
[2017-04-20] MEDS: DIGOXIN 250 MCG TABLET. PEG SCH (08:38)
[2017-04-20] MEDS: FLUTICASONE 50MCG/NASAL SPRAY 16GM BOTTLE. NS SCH (09:00)
[2017-04-20] MEDS: AMIODARONE HCL 200 MG TABLET. PEG SCH ×2 (09:00→09:28)
[2017-04-20] MEDS: GABAPENTIN 250 MG/5 ML ORAL SOLUTION. PEG SCH ×3 (09:27→21:27)
[2017-04-20] MEDS: CHLORHEXIDINE 0.12% 15 ML MOUTHWASH. SWSP SCH ×2 (09:28→21:27)
[2017-04-20] MEDS: POLYETHYLENE GLYCOL 3350 17 GM PACKET. PO SCH (09:28)
[2017-04-20] MEDS: LACTOBACILLUS ACIDOPH & BULGAR 1 TABLET. PO SCH ×2 (09:29→21:27)
[2017-04-20] MEDS: APIXABAN 5 MG TABLET. PO SCH ×2 (09:29→21:27)
[2017-04-20] MEDS: busPIRone 5 MG TABLET. PEG SCH (09:29)
[2017-04-20] MEDS: ASCORBIC ACID 500 MG TABLET PEG SCH (09:29)
[2017-04-20] MEDS: SIMETHICONE 80 MG TAB.CHEW PEG SCH ×4 (09:29→21:27)
[2017-04-20] MEDS: DICLOFENAC SODIUM 1% TOPICAL GEL 100GM TUBE. TP SCH ×4 (09:31→21:00)
[2017-04-20] MEDS ORDERED: BUPIVACAINE MPF 0.25% 10 ML VIAL. ONE (10:30)
[2017-04-20] MEDS ORDERED: methylPREDNISolone ACETATE 40 MG/ML VIAL. ONE (10:30)
[2017-04-20] MEDS ORDERED: BUPIVACAINE MPF 0.25% 10 ML VIAL. IJ ONE (10:30)
[2017-04-20] MEDS ORDERED: methylPREDNISolone ACETATE 40 MG/ML VIAL. IM ONE (10:30)
--- NOTE | 2017-04-20 10:53 | PN ---
DATE: 04/20/2017 SUBJECTIVE: The patient is resting slightly propped up in bed, no apparent respiratory distress. He is complaining that he has a pair of scissors in his left groin; however, there is none there, we examined. We took to call his clothes and looked beneath him, and there is none there. He refused to allow us to draw the blood to monitor his sodium. PHYSICAL EXAMINATION: Heart rate is slow, so we are holding his metoprolol and amiodarone. GENERAL: When I examined him this morning, he looked pale, no jaundice, cyanosis or thyromegaly. No jugular venous distention. No limb edema. VITAL SIGNS: His heart rate was 47, blood pressure was 138/54, temperature was 97.5, respiratory rate was 18 and oxygen saturation was 97% on room air. EXAMINATION OF HEAD, EYES, EARS, NOSE AND THROAT: Showed normocephalic, atraumatic. NECK: Supple. HEART: Showed normal first and second heart sounds. No gallop, rub or murmur. CHEST: Clear to auscultation. No crepitation or rhonchi. ABDOMEN: Distended, soft, nontender. No guarding or rigidity. No organomegaly. Hernial orifices intact. Bowel sounds normal. NEUROLOGIC: He is awake, alert, responding appropriately. He has right middle cerebral artery territory infarct with left side hemiplegia, also severe pain in the left side due to thalamic syndrome. He has severe pain in his left knee joint with flexion contracture. His intake over the last 24 hours was 2200, output was 1200. LABORATORY DATA: As of this morning, his most recent serum sodium was 129, potassium 4.1, chloride 94, bicarbonate 31, anion gap of 4, BUN 14, creatinine 0.8. Estimated GFR was 93 mL per minute. His uric acid is low at 2 mg/dL. His calcium was 8.4. Urine osmolality was low at 116. ASSESSMENT AND PLAN: 1. Hyponatremia, most likely due to inappropriate antidiuretic hormone secretion as he was started on Prozac most recently, it was discontinued. 2. Atrial fibrillation, rate controlled, well anticoagulated. He is on amiodarone and metoprolol as well as apixaban. He is bradycardic and we are holding today both the metoprolol and amiodarone. 3. Right middle cerebral artery territory infarct with left side hemiplegia. Severe pain involving the entire left side of his body due to thalamic syndrome. 4. Dysphagia. He has a gastrostomy tube placed. He is currently on tube feeding. He was supposed to have his video swallowing evaluation done yesterday, apparently that was postponed to today. 5. The patient has severe pain in his right knee due to severe osteoarthritis with flexion contraction of his right lower extremity. We did actually sent him to Dr. Parsons's office for intra-articular injection of steroids, but he refused. The plan is to continue with fluid restriction. His normal saline was discontinued. I have consulted Dr. Aragon to evaluate his right knee and perhaps inject it with steroid if he agrees to that. Also, Dr. Damian Rome to assist with his left-sided thalamic syndrome. I also consulted Speech Therapy for video swallowing evaluation. We did start him on scopolamine patch to see if that will reduce excessive secretion as he is unable to swallow his own oral secretion. JENNIFER MCKEON MD DR: MARIANA/zhou JOB#: [id number] / [id number]
[2017-04-20 11:00] VITALS: BP 131/54
[2017-04-20] MEDS: ACETAMINOPHEN 650 MG/20.3 ML SOLUTION. PEG PRN (11:42)
--- NOTE | 2017-04-20 11:43 | PDOC ---
Renal-Progress Notes Subjective Notes Notes NO CHANGE History of Present Illness Hx of present illness STABLE Vitals Vitals Vital Signs Date Time Temp Pulse Resp B/P (MAP) Pulse Ox O2 Delivery O2 Flow Rate FiO2 04/20/17 09:00 47 138/54 04/20/17 08:00 Nasal Cannula 2.0 04/20/17 07:00 97.5 18 97 97.5 Weight Weight [ ] I.O. Intake and Output Intake and Output 04/21/17 07:00 Output Total 300 ml Balance -300 ml Output Urine Total 300 ml Labs Labs Laboratory Tests Test 04/19/17 11:56 04/19/17 17:45 Sodium Level 130 mmol/L (136-145) 129 mmol/L (136-145) Review of Systems Constitutional: yes: weakness, alert Ears/Nose/Throat: Yes: no symptom reported Eyes: Yes: no symptom reported Cardiovascular: Yes no symptom reported Gastrointestional: Yes: no symptom reported Musculoskeletal: Yes: no symptom reported Physical Exam General Appearance: no apparent distress Respiratory: bilateral CTA Heart: S1S2, RRR Abdomen: soft Neurology: alert Assessment Assessment IMP HYPONATREMIA-SIADH PLAN AGREE WITH THE LOW FLOW NS AGREE WITH STOPPING SSRI AVA CERRATO MD Apr 20, 2017 11:43
[2017-04-20 15:00] VITALS: BP 136/53
[2017-04-20 19:15] VITALS: BP 135/55
[2017-04-20] MEDS ORDERED: DICLOFENAC SODIUM 1% TOPICAL GEL 100GM TUBE. TP SCH (21:00)
[2017-04-20 23:00] VITALS: BP 125/69
--- NOTE | 2017-04-21 00:30 | CONS ---
DATE OF CONSULTATION: 04/20/2017 ATTENDING PHYSICIAN: Will Olivia MD REASON FOR CONSULTATION: The patient was seen at the request of Dr. Olivia for injecting his right knee. HISTORY OF PRESENT ILLNESS: This is an 82-year-old right-handed male, a resident of [facility], noted to have low sodium of 118 and was admitted to [facility] on 04/18/2017 for further evaluation. He was noted with a serum sodium of 121 mEq. He was recently started on Prozac. The patient complains of pain in his left side of the body and also right knee and also recurrent bouts of cough. The patient did complain of nausea and vomited a few times. 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 The patient had a cholecystostomy tube placement in the past for the acute cholecystitis. FAMILY HISTORY: Coronary artery disease. SOCIAL HISTORY: The patient is . He used to be [employer] in [place]. He had 2 supportive daughters. ALLERGIES: THE PATIENT IS KNOWN ALLERGIC TO ERYTHROMYCIN, NIACIN AND TETRACYCLINE. IMAGING: The patient had x-rays of his right knee done on last week, which revealed degenerative changes. PHYSICAL EXAMINATION: Today revealed an elderly male. He is alert, oriented to place and person; follows commands appropriately. He had generalized muscle weakness and joint tightness, especially with pain on range of motion of left shoulder, left wrist and left hand fingers, left knee, left ankle and right knee. He had a blister over posterolateral aspect of right heel. He had hyperesthesia to touch and pinprick sensation over left side of his body. Deep tendon reflexes are exaggerated on the left side. He had some dependent edema of his feet. The patient had crepitus on range of motion of both knee joints without any significant knee joint effusion. He had residual left hemiparesis. He requires help with bed mobility. I have not tested transfers or ambulation skills at this time. The patient was seen by Speech Pathology who noted him with a decreased mentation. He attempted ice chip trials and half teaspoonful thin liquid water, noted immediate signs and symptoms of aspiration post both trials. The patient complains of not liking flavor with trials and refused additional trials. He complained of pain with head of bed elevated, unable to tolerate sitting upright and complained of ice chip tasting bad, too cold and plain tap water tasting bad, too much lemon in it and refused additional p.o. trials. He was unable to demonstrate volitional swallow or volitional throat year at this time and Speech Pathology noted him at high risk for aspiration with p.o. intake, not a candidate for a video dysphagia study at this time due to poor compliance nor does video swallow appear indicated given a consistent overall severity of dysphagia with limited clinical trial. Speech Pathology going to continue work with him and they are going to try to contact skilled nursing to request most recent video swallow evaluation. 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 The patient also presents with mild left central facial paresis. RECOMMENDATIONS: At his request, I have injected his right knee under aseptic skin technique after skin preparation using alcohol swab with Marcaine and Depo-Medrol solution and he tolerated the procedure satisfactorily without any side effects. To consider injecting his left shoulder and also left knee as needed depending upon the results and also to consider Botox injection if needed to help ease his left hand finger tightness, to also try Isotoner glove to help ease dependent edema, to get him measured for left ankle foot orthosis and hinged knee brace to his right knee and to obtain Stevan splint to his right ankle to keep the heel off pressure to help with blister healing. Dr. Olivia, I appreciate asking me to participate in the care of this interesting patient. I will be glad to follow him with you as needed for his rehabilitation. JUANPABLO CRANDALL MD DR: JAVAD/zhou JOB#: [id number] / [id number]
[2017-04-21 03:00] VITALS: BP 133/65
[2017-04-21 06:41] LABS: CALCIUM 8.9 mg/dL (8.5-10.1); CREATININE 0.8 mg/dL (0.7-1.3); POTASSIUM 4.6 mmol/L (3.5-5.1)
[2017-04-21 07:06] VITALS: BP 126/61
[2017-04-21] MEDS: FLUTICASONE 50MCG/NASAL SPRAY 16GM BOTTLE. NS SCH (09:00)
[2017-04-21] MEDS: METOPROLOL TART IMMED RELEASE 25 MG TABLET. PEG SCH (09:00)
[2017-04-21] MEDS: AMIODARONE HCL 200 MG TABLET. PEG SCH (09:00)
[2017-04-21] MEDS: DIGOXIN 250 MCG TABLET. PEG SCH (09:00)
[2017-04-21] MEDS: CHLORHEXIDINE 0.12% 15 ML MOUTHWASH. SWSP SCH ×2 (09:00→20:58)
--- NOTE | 2017-04-21 09:08 | PDOC ---
PROGRESS NOTES Subjective Subjective He feels better with right knee pain. Objective Objective Vital Signs Date Time Temp Pulse Resp B/P (MAP) Pulse Ox O2 Delivery O2 Flow Rate FiO2 04/21/17 07:06 98.6 56 18 126/61 (82) 93 Room Air 98.6 04/20/17 20:11 2.0 Physical Exam Physical Exam He is alert and continues with spastic left hemiparesis with plantar flexion contracture of left ankle and pain on attempts at any movement of lef cole and lower extremities. Plan Plan of Care To SNF when medically stable. Comment Review of Relevant I have reviewed the following items krys (where applicable) has been applied. Labs Laboratory Tests Test 04/19/17 11:56 04/19/17 17:45 04/20/17 12:40 04/20/17 18:00 Sodium Level 130 mmol/L (136-145) 129 mmol/L (136-145) 131 mmol/L (136-145) 129 mmol/L (136-145) Test 04/21/17 05:05 Sodium Level 128 mmol/L (136-145) Potassium Level 4.6 mmol/L (3.5-5.1) Chloride Level 94 mmol/L (98-107) Carbon Dioxide Level 31 mmol/L (21-32) Anion Gap 3 (6-14) Blood Urea Nitrogen 15 mg/dL (8-26) Creatinine 0.8 mg/dL (0.7-1.3) Estimated GFR (Cockcroft-Gault) 93.0 Glucose Level 127 mg/dL (70-99) Calcium Level 8.9 mg/dL (8.5-10.1) Laboratory Tests Test 04/20/17 12:40 04/20/17 18:00 04/21/17 05:05 Sodium Level 131 mmol/L (136-145) 129 mmol/L (136-145) 128 mmol/L (136-145) Potassium Level 4.6 mmol/L (3.5-5.1) Chloride Level 94 mmol/L (98-107) Carbon Dioxide Level 31 mmol/L (21-32) Anion Gap 3 (6-14) Blood Urea Nitrogen 15 mg/dL (8-26) Creatinine 0.8 mg/dL (0.7-1.3) Estimated GFR (Cockcroft-Gault) 93.0 Glucose Level 127 mg/dL (70-99) Calcium Level 8.9 mg/dL (8.5-10.1) Medications Current Medications Sodium Chloride 1,000 ml @ 100 mls/hr 1X ONCE IV Last administered on 21:58; Start 04/17/17 at 21:45; Stop 04/18/17 at 07:44; Status DC Gabapentin (Neurontin) 500 mg [id number] PEG Last administered on 04/20/17 21:27; Start 04/18/17 at 01:00 Fentanyl Citrate (Fentanyl 2ml Vial) 25 mcg PRN Q3HRS PRN IV PAIN Last administered on 04/18/17 01:03; Start 04/18/17 at 00:30; Stop 04/21/17 at 08: 36; Status DC Fentanyl Citrate (Fentanyl 2ml Vial) 50 mcg PRN Q3HRS PRN IV PAIN; Start at 01:00; Stop 04/21/17 at 08:36; Status DC Sodium Chloride 1,000 ml @ 100 mls/hr 1X ONCE IV Last administered on 09:51; Start 04/18/17 at 09:00; Stop 04/18/17 at 18:59; Status DC Acetaminophen (Tylenol) 500 mg BID PO ; Start 04/18/17 at 11:00; Status Cancel Amiodarone HCl (Cordarone) 200 mg DAILY PO ; Start 04/18/17 at 11:00; Stop 04/18 at 11:22; Status DC Apixaban (Eliquis) 5 mg BID PO Last administered on 04/20/17 21:27; Start 04/18/17 at 11:00 Ascorbic Acid (Vitamin C) 500 mg DAILY PO ; Start 04/18/17 at 11:00; Stop at 11:22; Status DC Buspirone HCl (Buspar) 5 mg BID PO ; Start 04/18/17 at 11:00; Stop 04/18/17 at 11:22; Status DC Chlorhexidine Gluconate (Peridex) 15 ml BID SWSP Last administered on 21:27; Start 04/18/17 at 11:00 Diclofenac Sodium (Voltaren) 1 cedric QID TP Last administered on 04/20/17 13:34 ; Start 04/18/17 at 13:00 Digoxin (Lanoxin) 250 mcg DAILY PO ; Start 04/18/17 at 11:00; Stop 04/18/17 at 11:22; Status DC Metoprolol Tartrate (Lopressor) 25 mg BID PO ; Start 04/18/17 at 11:00; Stop at 11:22; Status DC Pantoprazole Sodium (Protonix) 40 mg DAILYAC PO ; Start 04/18/17 at 11:00; Status Cancel Polyethylene Glycol (miraLAX PACKET) 17 gm DAILY PO Last administered on 09:28; Start 04/18/17 at 11:00 Simethicone (Gas-X) 80 mg QID PO ; Start 04/18/17 at 13:00; Stop 04/18/17 at 13: 00; Status DC Fluticasone Propionate (Flonase) 2 spray DAILY NS Last administered on 09:41; Start 04/18/17 at 11:00 Gabapentin (Neurontin) 600 mg TID PO ; Start 04/18/17 at 14:00; Status Cancel Guaifenesin/ Codeine Phosphate (Robitussin Ac) 5 ml Q4HRS PO ; Start 04/18/17 at 12:00; Stop 04/18/17 at 12:00; Status DC Hydrocortisone (Cortaid) 1 cedric PRN BID PRN TP ITCHING; Start 04/18/17 at 10:45 Lactobacillus Acidophilus (Bacid, Breanna-Bid) 1 tab BID PO Last administered on 04/20/17 21:27; Start 04/18/17 at 11:00 Sodium Chloride 1,000 ml @ 75 mls/hr [id number] IV Last administered on 08:41; Start 04/18/17 at 11:15; Stop 04/19/17 at 11:33; Status DC Amiodarone HCl (Cordarone) 200 mg DAILY PEG Last administered on 04/19/17 08: 41; Start 04/18/17 at 12:00 Ascorbic Acid (Vitamin C) 500 mg DAILY PEG Last administered on 04/20/17 09:29 ; Start 04/18/17 at 12:00 Buspirone HCl (Buspar) 5 mg BID PEG Last administered on 04/20/17 09:29; Start 04/18/17 at 12:00; Stop 04/20/17 at 17:54; Status DC Digoxin (Lanoxin) 250 mcg DAILY PEG Last administered on 04/18/17 12:17; Start 04/18/17 at 12:00 Guaifenesin/ Codeine Phosphate (Robitussin Ac) 5 ml Q4HRS PEG Last administered on 04/20/17 11:42; Start 04/18/17 at 12:00; Stop 04/20/17 at 18:07 ; Status DC Metoprolol Tartrate (Lopressor) 25 mg BID PEG Last administered on 04/19/17 21 :11; Start 04/18/17 at 12:00 Simethicone (Gas-X) 80 mg QID PEG Last administered on 04/20/17 21:27; Start 04/18/17 at 13:00 Pantoprazole Sodium (Protonix Vial) 40 mg DAILYAC IVP Last administered on 04/20 07:58; Start 04/18/17 at 11:30 Acetaminophen (Tylenol) 650 mg PRN Q6HRS PRN PEG MILD PAIN / TEMP Last administered on 04/20/17 11:42; Start 04/18/17 at 11:30 Scopolamine (Transderm-Scop) 1 patch Q3DAYS TD Last administered on 04/18/17 12:16; Start 04/18/17 at 12:00; Stop 04/20/17 at 17:54; Status DC Methylprednisolone Acetate (DEPO-Medrol 40MG VIAL) 40 mg 1X ONCE IM ; Start at 10:30; Stop 04/20/17 at 10:31; Status DC Bupivacaine HCl (Sensorcaine-Mpf 0.25%) 10 ml 1X ONCE IJ ; Start 04/20/17 at 10 :30; Stop 04/20/17 at 10:31; Status DC Diclofenac Sodium (Voltaren) 1 cedric BID TP ; Start 04/20/17 at 21:00; Status UNV Active Scripts Active Reported Ascorbic Acid 500 Mg Tablet 500 Mg PO Tumersaid Tablet (Turm/Ging/Ej/Yuc/Darrick/Tatyana/Hor) 1 Each Tablet 1 Each PO Simethicone 80 Mg Tab.chew 80 Mg PO Pantoprazole Sodium 40 Mg Tablet.dr 1 Tab PO DAILY L-Ewryce-T-Cysteine (Acetylcysteine) 600 Mg Capsule 600 Mg PO Modafinil 100 Mg Tablet 100 Mg PO Miralax (Polyethylene Glycol 3350) 17 Gm Powd.pack 1 Packet PO DAILY Metoprolol Tartrate 25 Mg Tablet 1 Tab PO BID Melatonin 3 Mg Tablet 5 Mg PO Lanoxin (Digoxin) 250 Mcg Tablet 1 Tab PO DAILY Culturelle (Lactobacillus Rhamnosus Gg) 1 Each Capsule 1 Each PO Hydrocortisone 1.5 Gm Cream.pack 1.5 Gm TP Guaifenesin Ac Cough Syrup (Guaifenesin/Codeine Phosphate) 473 Ml Liquid 5 Ml PO Q4HRS Gabapentin 600 Mg Tablet 600 Mg PO TID Flonase Allergy Relief (Fluticasone Propionate) 9.9 Ml [place].susp 2 Sprays NS DAILY Eliquis (Apixaban) 5 Mg Tablet 5 Mg PO Voltaren (Diclofenac Sodium) 100 Gm Gel..gram. 1 Gm TP QID Peridex (Chlorhexidine Gluconate) 15 Ml Mouthwash 15 Ml PO BID Buspirone Hcl 5 Mg Tablet 1 Tab PO BID Amiodarone Hcl 200 Mg Tablet 1 Tab PO DAILY Acetaminophen 500 Mg Tablet 1 Tab PO BID Vitals/I & O Vital Sign - Last 24 Hours 04/20/17 04/20/17 04/20/17 04/20/17 11:00 15:00 19:15 20:11 Temp 97.5 97.6 97.8 97.5 97.6 97.8 Pulse 47 50 51 Resp 18 18 18 B/P (MAP) 131/54 (79) 136/53 (80) 135/55 (81) Pulse Ox 96 97 96 O2 Delivery Room Air Room Air Room Air Nasal Cannula O2 Flow Rate 2.0 04/20/17 04/20/17 04/21/17 04/21/17 21:00 23:00 03:00 07:06 Temp 97.5 98.0 98.6 97.5 98.0 98.6 Pulse 51 54 56 56 Resp 14 18 18 B/P (MAP) 135/55 125/69 (87) 133/65 (87) 126/61 (82) Pulse Ox 95 94 93 O2 Delivery Room Air Room Air Room Air JUANPABLO CRANDALL MD Apr 21, 2017 09:08
[2017-04-21] MEDS: POLYETHYLENE GLYCOL 3350 17 GM PACKET. PO SCH (09:34)
[2017-04-21] MEDS: SIMETHICONE 80 MG TAB.CHEW PEG SCH ×4 (09:34→20:51)
[2017-04-21] MEDS: ASCORBIC ACID 500 MG TABLET PEG SCH (09:34)
[2017-04-21] MEDS: APIXABAN 5 MG TABLET. PO SCH ×2 (09:37→22:53)
[2017-04-21] MEDS: PANTOPRAZOLE IV PUSH 40 MG VIAL. IVP SCH (09:38)
[2017-04-21] MEDS: LACTOBACILLUS ACIDOPH & BULGAR 1 TABLET. PO SCH ×2 (09:38→20:51)
[2017-04-21] MEDS: GABAPENTIN 250 MG/5 ML ORAL SOLUTION. PEG SCH ×3 (09:47→20:50)
[2017-04-21] MEDS: DICLOFENAC SODIUM 1% TOPICAL GEL 100GM TUBE. TP SCH ×4 (09:48→20:58)
--- NOTE | 2017-04-21 10:16 | PN ---
DATE: 04/21/2017 SUBJECTIVE: The patient is resting, slightly propped up in bed, in no apparent respiratory distress. On questioning him, he denied any complaint. Apparently, his right knee injected yesterday by Dr. Aragon. He continued to have bradycardia and he is already on digoxin, amiodarone as well as metoprolol, so I held all these and consulted the oven equipment repairer to decide on which will need to be discontinued. Video swallowing evaluation was canceled as he was very lethargic yesterday. I discontinued his BuSpar, scopolamine patch as well as codeine and fentanyl. He seemed to be more awake today. His daughter, Gloria wants the residential speech therapist to be in attendance with his video swallowing evaluation. I am not sure whether that is permissible or not, but I will talk with the speech therapist here in the hospital to see if she can be invited. PHYSICAL EXAMINATION: GENERAL: When I examined him, he was somewhat pale, not jaundice or cyanosed. No lymphadenopathy, no thyromegaly, no jugular venous distention, no limb edema. VITAL SIGNS: His heart rate was 56, blood pressure 126/61. His temperature was 98.6, respiratory rate was 18 and oxygen saturation was 93%. HEAD, EYES, EARS, NOSE AND THROAT: Showed normocephalic, atraumatic. NECK: Supple. HEART: Showed normal first and second heart sounds with no gallop, rub or murmur. CHEST: Clear to auscultation. No crepitation or rhonchi. ABDOMEN: Distended, soft, nontender. No guarding or rigidity. No organomegaly. Hernial orifices intact. Bowel sounds normal. He has a gastrostomy tube in place. NEUROLOGIC: He is awake, alert, responding appropriately, has mild left-sided facial droop, left-sided hemiplegia with fixed flexion contracture. His intake over the last 24 hours was 1000, output was 400. LABORATORY DATA: As of this morning showed a serum sodium of 128, potassium 4.6, chloride 94, bicarbonate 31, anion gap of 3, BUN 15, creatinine 0.8, estimated GFR was 93 mL per minute, his glucose 127, calcium was 8.9. His white cell count was 5900, hemoglobin 13.5, hematocrit 40, MCV 93 and platelet count of 184,000. His urinalysis was unremarkable. Urine toxic screen was negative. His nasal screen for MRSA by PCR was negative. ASSESSMENT AND PLAN: 1. Hyponatremia, most likely due to inappropriate antidiuretic hormone secretion probably induced by Prozac, it was discontinued. 2. Atrial fibrillation, rate controlled, well anticoagulated. He is on amiodarone, metoprolol and digoxin. His heart rate drops down, sometimes ran in the 40s. I did consult the cardiology team to see which one of them need to be discontinued. 3. Right middle cerebral artery territory infarct with left-sided hemiplegia, fixed flexion contracture of both left upper and left lower extremity. 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 4. Dysphagia for which he has a gastrostomy tube placed. He is currently on tube feeding. 5. The patient has severe pain in his right knee due to severe osteoarthritis with flexion contracture of the right lower extremity that was injected by steroids yesterday with good effect. My plan is to wait for video swallowing evaluation and also pain management consult, hopefully discharge him back tomorrow to [facility]. JENNIFER MCKEON MD DR: MARIANA/zhou JOB#: [id number] / [id number]
--- NOTE | 2017-04-21 10:44 | PDOC2 ---
JORDI VELAZQUEZ FORENSIC MANAGER 04/21/17 1043: CARDIAC CONSULT DATE OF CONSULT Date of Consult DATE: 04/21/17 TIME: 10:27 REASON FOR CONSULT Reason for Consult: bradycardia REFERRING PHYSICIAN Referring Physician: Corwin SOURCE Source: Chart review, Patient HISTORY OF PRESENT ILLNESS HISTORY OF PRESENT ILLNESS This is a pleasant 82 yo male admitted for noted Na of 110. He was positive for frequent coughing and n/v prior to hospitalization. He came from rehab facility and after labs his Na at that time was 118 prompting hospitalization. 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 Prozac recently started. The consult is for bradycardia. He is a poor historian just wanting me to live him alone. Pt reports that he had his AFIB ablation this yr as well as alos had CVA that resulted to right side hemiparesis. Pt reports that he had his procedure at [facility] and has not not established cardiology care in the [facility] area. Family is not present so details are limited. There was no apparent notation of syncope, palpitations, CP or SOA. NO reported hx of CAD or VTE. PAST MEDICAL HISTORY Cardiovascular: AFIB CENTRAL NERVOUS SYSTEM: CVA GI: GERD, Peptic Ulcer disease, Other (dysphagia) Musculoskeletal: Osteoarthritis, Other (right side hemiparesis) PAST SURGICAL HISTORY Past Surgical History PEG tube placement, cholecystostomy tube placement and removal. FAMILY HISTORY Family History: Coronary Artery Disease SOCIAL HISTORY Smoke: No ALCOHOL: none Drugs: None Lives: with Family ALLERGIES ALLERGIES: Coded Allergies: erythromycin base (Verified Allergy, Intermediate, Rash, 04/17/17) RASH BETWEEN TESTICLES AND "I GET VERY HOT" niacin (Verified Allergy, Intermediate, Rash, 04/17/17) RASH BETWEEN TESTICLES AND "I GET VERY HOT" tetracycline (Verified Allergy, Intermediate, Rash, 04/17/17) RASH BETWEEN TESTICLES AND "I GET VERY HOT" ROS Review of System See HPI, limited details, poor historian. PHYSICAL EXAM General: Alert, Oriented X3, Cooperative, No acute distress HEENT: Atraumatic, Mucous membr. moist/pink Lungs: Clear to auscultation, Normal air movement Heart: Regular rate (SR), Normal S1, Normal S2, Other (2/6 systolic murmur to LLS border) Abdomen: Soft, Other (PEG tube) Extremities: No cyanosis, No edema Skin: No breakdown, No significant lesion Neuro: Normal speech, Sensation intact Psych/Mental Status: Mood NL MUSCULOSKELETAL: Osteoarthritic changes both hands, Other (right side hemiparesis) VITALS VITALS Vital Signs Date Time Temp Pulse Resp B/P (MAP) Pulse Ox O2 Delivery O2 Flow Rate FiO2 04/21/17 09:00 56 126/61 04/21/17 07:06 98.6 18 93 Room Air 98.6 04/20/17 20:11 2.0 LABS Lab: Laboratory Tests Test 04/20/17 12:40 04/20/17 18:00 04/21/17 05:05 Sodium Level 131 mmol/L (136-145) 129 mmol/L (136-145) 128 mmol/L (136-145) Potassium Level 4.6 mmol/L (3.5-5.1) Chloride Level 94 mmol/L (98-107) Carbon Dioxide Level 31 mmol/L (21-32) Anion Gap 3 (6-14) Blood Urea Nitrogen 15 mg/dL (8-26) Creatinine 0.8 mg/dL (0.7-1.3) Estimated GFR (Cockcroft-Gault) 93.0 Glucose Level 127 mg/dL (70-99) Calcium Level 8.9 mg/dL (8.5-10.1) ASSESSMENT/PLAN ASSESSMENT/PLAN 1. Asymptomatic Sinus bradycardia: No pauses. Lowest HR in the 40s. Presently HR 60s. Multifactorial including AV linda blocking agents and hyponatremia. QTc 556 2. PAFIB: ablation in the past. currently SR/SB. 3. Hyponatremia: improving. 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 Nephrology following. 4. CVA: with right side hemiparesis Recommendations 1. No immediate need for pacemaker. DC digoxin. Will reevaluate amiodarone and metoprolol (will place at a lower dose) tomorrow. 2. Echo 3. Obtain records. Noted with request to go to [facility]. If pt is willing will establish care with our group upon discharge. Problems: MIR RIVERA MD 04/21/17 1911: CARDIAC CONSULT ALLERGIES ALLERGIES: Coded Allergies: erythromycin base (Verified Allergy, Intermediate, Rash, 04/17/17) RASH BETWEEN TESTICLES AND "I GET VERY HOT" niacin (Verified Allergy, Intermediate, Rash, 04/17/17) RASH BETWEEN TESTICLES AND "I GET VERY HOT" tetracycline (Verified Allergy, Intermediate, Rash, 04/17/17) RASH BETWEEN TESTICLES AND "I GET VERY HOT" ASSESSMENT/PLAN ASSESSMENT/PLAN Patient seen and examined. Agree with ROLL OPERATOR's assessment and plan. Agree with stopping digoxin and decreasing metoprolol dose for sinus bradycardia. Continue amiodarone for rhythm maintenance. No pauses noted. We will obtain danielle records regarding A.Fib ablation 2D echo showed normal LV function. Hyponatremia improving - nephrology following Thank you for your consultation. Problems: JORDI VELAZQUEZ APRN Apr 21, 2017 10:43 MIR RIVERA MD Apr 21, 2017 19:11
--- NOTE | 2017-04-21 10:55 | EKG ---
[facility] [address] [place] [address] Test Date: 2017-04-21 Test Time: 10:50:46 Pat Name: ALESSANDRO BOSWELL Department: Room: [facility] Gender: M Transport Nurse: RANDA : 1935 Requested By: JORDI VELAZQUEZ Order Number: [id number] Reading MD: No Hubbard Measurements Intervals [place] Rate: 58 P: 90 TX: 164 QRS: -7 QRSD: 98 T: 61 QT: 560 QTc: 554 Interpretive Statements SINUS RHYTHM LEFTWARD AXIS PROLONGED QT Electronically Signed On 04-21-2017 20:09:21 CDT by No Hubbard
[2017-04-21 11:06] VITALS: BP 136/77
--- NOTE | 2017-04-21 11:59 | PDOC ---
Renal-Progress Notes Subjective Notes Notes NO CHANGE History of Present Illness Hx of present illness NO CHANGE Vitals Vitals Vital Signs Date Time Temp Pulse Resp B/P (MAP) Pulse Ox O2 Delivery O2 Flow Rate FiO2 04/21/17 11:06 98.3 117 18 136/77 (96) 95 Room Air 98.3 04/21/17 10:52 2.0 Weight Weight [ ] Labs Labs Laboratory Tests Test 04/20/17 12:40 04/20/17 18:00 04/21/17 05:05 Sodium Level 131 mmol/L (136-145) 129 mmol/L (136-145) 128 mmol/L (136-145) Potassium Level 4.6 mmol/L (3.5-5.1) Chloride Level 94 mmol/L (98-107) Carbon Dioxide Level 31 mmol/L (21-32) Anion Gap 3 (6-14) Blood Urea Nitrogen 15 mg/dL (8-26) Creatinine 0.8 mg/dL (0.7-1.3) Estimated GFR (Cockcroft-Gault) 93.0 Glucose Level 127 mg/dL (70-99) Calcium Level 8.9 mg/dL (8.5-10.1) Review of Systems Constitutional: yes: weakness, alert Ears/Nose/Throat: Yes: no symptom reported Eyes: Yes: no symptom reported Cardiovascular: Yes no symptom reported Gastrointestional: Yes: no symptom reported Musculoskeletal: Yes: no symptom reported Physical Exam General Appearance: no apparent distress Respiratory: bilateral CTA Heart: S1S2, RRR Abdomen: soft Neurology: alert Musculoskeletal: Osteoarthritis, Other (right side hemiparesis) Assessment Assessment IMP [id number] IS DOWN TO 129 PLAN AGREE WITH THE LOW FLOW NS AGREE WITH STOPPING SSRI MAY NEED SAMSCA MAY TAKE SOME TIME TO IMPROVE WILL NEED TO AVOID WATER BOLUS AVA CERRATO MD Apr 21, 2017 11:59
[2017-04-21 15:00] VITALS: BP 119/52
--- NOTE | 2017-04-21 15:11 | PDOC ---
SUBJECTIVE Subjective left sided pain OBJECTIVE Objective 73yo c/o left flank/sided pain Vital Signs Vital Signs Date Time Temp Pulse Resp B/P (MAP) Pulse Ox O2 Delivery O2 Flow Rate FiO2 04/21/17 11:06 98.3 117 18 136/77 (96) 95 Room Air 98.3 04/21/17 10:52 Nasal Cannula 2.0 04/21/17 09:00 56 126/61 04/21/17 09:00 56 126/61 04/21/17 08:00 Nasal Cannula 2.0 04/21/17 07:06 98.6 56 18 126/61 (82) 93 Room Air 98.6 04/21/17 03:00 98.0 56 18 133/65 (87) 94 Room Air 98.0 04/20/17 23:00 97.5 54 14 125/69 (87) 95 Room Air 97.5 04/20/17 21:00 51 135/55 04/20/17 20:11 Nasal Cannula 2.0 04/20/17 19:15 97.8 51 18 135/55 (81) 96 Room Air 97.8 I & O Intake and Output 04/22/17 07:00 Output Total 1 ml Balance -1 ml Stool Total 1 ml ASSESSMENT/PLAN Assessment/Plan 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
--- NOTE | 2017-04-21 16:40 | CARD ---
APPROVED REPORT EXAM: Two-dimensional and M-mode echocardiogram with Doppler and color Doppler. Other Information Quality : Fair Technically limited study due to body habitus. INDICATION Abnormal ECG Atrial Fibrillation Bradycardia 2D DIMENSIONS RVDd2.5 (2.9-3.5cm)Left Atrium(2D)3.8 (1.6-4.0cm) IVSd1.8 (0.7-1.1cm)Aortic Root(2D)2.8 (2.0-3.7cm) LVDd4.1 (3.9-5.9cm)LVOT Diameter2.0 (1.8-2.4cm) PWd1.4 (0.7-1.1cm)LVDs3.2 (2.5-4.0cm) FS (%) 28.0 %SV31.4 ml LVEF(%)55.0 (>50%) Aortic Valve AoV Peak He.174.2cm/sAoV VTI32.2cm AO Peak GR.12.1mmHgLVOT Peak He.79.8cm/s AO Mean GR.7mmHgAVA (VMAX)1.48cm2 TONY (VTI)1.90cm2 Mitral Valve MV E Pbqflyei34.6cm/sMV DECEL [id number] MV A Qczyqldo56.3cm/sE/A Ratio0.6 LEFT VENTRICLE The left ventricle is normal size. There is mild to moderate concentric left ventricular hypertrophy. The left ventricular systolic function is normal and the ejection fraction is within normal range. T he Ejection Fraction is 55-60%. There is grossly normal LV segmental wall motion. Technically difficu lt study. Transmitral Doppler flow pattern is Grade I-abnormal relaxation pattern. RIGHT VENTRICLE The right ventricle is normal size. The right ventricular systolic function is normal. ATRIA The left atrium size is normal. The right atrium size is normal. The interatrial septum is intact wit h no evidence for an atrial septal defect or patent foramen ovale as noted on 2-D or Doppler imaging. AORTIC VALVE The aortic valve is calcified but opens well. Doppler and Color Flow revealed no significant aortic r egurgitation. There is no significant aortic valvular stenosis. MITRAL VALVE The mitral valve is calcified but opens well. There is no evidence of mitral valve prolapse. There is no mitral valve stenosis. TRICUSPID VALVE The tricuspid valve is normal in structure and function. Doppler and Color Flow revealed no tricuspid valve regurgitation noted. There is no tricuspid valve stenosis. PULMONIC VALVE Doppler and Color Flow revealed no pulmonic valvular regurgitation. There is no pulmonic valvular amber nosis. GREAT VESSELS The aortic root is normal in size. The ascending aorta is normal in size. The IVC was not visualized. PERICARDIAL EFFUSION There is no evidence of significant pericardial effusion. Critical Notification Critical Value: No <Conclusion> The left ventricular systolic function is normal and the ejection fraction is within normal range. Th e Ejection Fraction is 55-60%. There is grossly normal LV segmental wall motion. Technically difficult study.
[2017-04-21 19:15] VITALS: BP 117/57
[2017-04-21] MEDS ORDERED: METOPROLOL TART IMMED RELEASE 25 MG TABLET. PEG SCH (21:00)
[2017-04-21 23:15] VITALS: BP 122/62
[2017-04-22 03:18] VITALS: BP 117/60
[2017-04-22 07:00] VITALS: BP 123/62
--- NOTE | 2017-04-22 08:37 | PDOC ---
PROGRESS NOTES Subjective Subjective He feels better with right knee pain. Objective Objective Vital Signs Date Time Temp Pulse Resp B/P (MAP) Pulse Ox O2 Delivery O2 Flow Rate FiO2 04/22/17 07:00 98.2 58 18 123/62 (82) 93 Room Air 98.2 04/21/17 10:52 2.0 Physical Exam Physical Exam He is supine in bed and continues with spastic left hemiparesis and mobility and self care limitations. Plan Plan of Care To SNF when medically stable. Comment Review of Relevant I have reviewed the following items krys (where applicable) has been applied. Labs Laboratory Tests Test 04/20/17 12:40 04/20/17 18:00 04/21/17 05:05 Sodium Level 131 mmol/L (136-145) 129 mmol/L (136-145) 128 mmol/L (136-145) Potassium Level 4.6 mmol/L (3.5-5.1) Chloride Level 94 mmol/L (98-107) Carbon Dioxide Level 31 mmol/L (21-32) Anion Gap 3 (6-14) Blood Urea Nitrogen 15 mg/dL (8-26) Creatinine 0.8 mg/dL (0.7-1.3) Estimated GFR (Cockcroft-Gault) 93.0 Glucose Level 127 mg/dL (70-99) Calcium Level 8.9 mg/dL (8.5-10.1) Medications Current Medications Sodium Chloride 1,000 ml @ 100 mls/hr 1X ONCE IV Last administered on 21:58; Start 04/17/17 at 21:45; Stop 04/18/17 at 07:44; Status DC Gabapentin (Neurontin) 500 mg [id number] PEG Last administered on 04/21/17 20:50 ; Start 04/18/17 at 01:00 Fentanyl Citrate (Fentanyl 2ml Vial) 25 mcg PRN Q3HRS PRN IV PAIN Last administered on 04/18/17 01:03; Start 04/18/17 at 00:30; Stop 04/21/17 at 08: 36; Status DC Fentanyl Citrate (Fentanyl 2ml Vial) 50 mcg PRN Q3HRS PRN IV PAIN; Start at 01:00; Stop 04/21/17 at 08:36; Status DC Sodium Chloride 1,000 ml @ 100 mls/hr 1X ONCE IV Last administered on 09:51; Start 04/18/17 at 09:00; Stop 04/18/17 at 18:59; Status DC Acetaminophen (Tylenol) 500 mg BID PO ; Start 04/18/17 at 11:00; Status Cancel Amiodarone HCl (Cordarone) 200 mg DAILY PO ; Start 04/18/17 at 11:00; Stop 04/18 at 11:22; Status DC Apixaban (Eliquis) 5 mg BID PO Last administered on 04/21/17 22:53; Start at 11:00 Ascorbic Acid (Vitamin C) 500 mg DAILY PO ; Start 04/18/17 at 11:00; Stop at 11:22; Status DC Buspirone HCl (Buspar) 5 mg BID PO ; Start 04/18/17 at 11:00; Stop 04/18/17 at 11:22; Status DC Chlorhexidine Gluconate (Peridex) 15 ml BID SWSP Last administered on 21:27; Start 04/18/17 at 11:00 Diclofenac Sodium (Voltaren) 1 cedric QID TP Last administered on 04/21/17 20:58 ; Start 04/18/17 at 13:00 Digoxin (Lanoxin) 250 mcg DAILY PO ; Start 04/18/17 at 11:00; Stop 04/18/17 at 11:22; Status DC Metoprolol Tartrate (Lopressor) 25 mg BID PO ; Start 04/18/17 at 11:00; Stop at 11:22; Status DC Pantoprazole Sodium (Protonix) 40 mg DAILYAC PO ; Start 04/18/17 at 11:00; Status Cancel Polyethylene Glycol (miraLAX PACKET) 17 gm DAILY PO Last administered on 09:34; Start 04/18/17 at 11:00 Simethicone (Gas-X) 80 mg QID PO ; Start 04/18/17 at 13:00; Stop 04/18/17 at 13: 00; Status DC Fluticasone Propionate (Flonase) 2 spray DAILY NS Last administered on 09:41; Start 04/18/17 at 11:00 Gabapentin (Neurontin) 600 mg TID PO ; Start 04/18/17 at 14:00; Status Cancel Guaifenesin/ Codeine Phosphate (Robitussin Ac) 5 ml Q4HRS PO ; Start 04/18/17 at 12:00; Stop 04/18/17 at 12:00; Status DC Hydrocortisone (Cortaid) 1 cedric PRN BID PRN TP ITCHING; Start 04/18/17 at 10:45 Lactobacillus Acidophilus (Bacid, Breanna-Bid) 1 tab BID PO Last administered on 04/21/17 20:51; Start 04/18/17 at 11:00 Sodium Chloride 1,000 ml @ 75 mls/hr [id number] IV Last administered on 08:41; Start 04/18/17 at 11:15; Stop 04/19/17 at 11:33; Status DC Amiodarone HCl (Cordarone) 200 mg DAILY PEG Last administered on 04/19/17 08: 41; Start 04/18/17 at 12:00; Stop 04/21/17 at 10:47; Status DC Ascorbic Acid (Vitamin C) 500 mg DAILY PEG Last administered on 04/21/17 09: 34; Start 04/18/17 at 12:00 Buspirone HCl (Buspar) 5 mg BID PEG Last administered on 04/20/17 09:29; Start 04/18/17 at 12:00; Stop 04/20/17 at 17:54; Status DC Digoxin (Lanoxin) 250 mcg DAILY PEG Last administered on 04/18/17 12:17; Start 04/18/17 at 12:00; Stop 04/21/17 at 10:42; Status DC Guaifenesin/ Codeine Phosphate (Robitussin Ac) 5 ml Q4HRS PEG Last administered on 04/20/17 11:42; Start 04/18/17 at 12:00; Stop 04/20/17 at 18:07 ; Status DC Metoprolol Tartrate (Lopressor) 25 mg BID PEG Last administered on 04/19/17 21 :11; Start 04/18/17 at 12:00; Stop 04/21/17 at 10:42; Status DC Simethicone (Gas-X) 80 mg QID PEG Last administered on 04/21/17 20:51; Start 04/18/17 at 13:00 Pantoprazole Sodium (Protonix Vial) 40 mg DAILYAC IVP Last administered on 09:38; Start 04/18/17 at 11:30 Acetaminophen (Tylenol) 650 mg PRN Q6HRS PRN PEG MILD PAIN / TEMP Last administered on 04/20/17 11:42; Start 04/18/17 at 11:30 Scopolamine (Transderm-Scop) 1 patch Q3DAYS TD Last administered on 04/18/17 12:16; Start 04/18/17 at 12:00; Stop 04/20/17 at 17:54; Status DC Methylprednisolone Acetate (DEPO-Medrol 40MG VIAL) 40 mg 1X ONCE IM ; Start at 10:30; Stop 04/20/17 at 10:31; Status DC Bupivacaine HCl (Sensorcaine-Mpf 0.25%) 10 ml 1X ONCE IJ ; Start 04/20/17 at 10 :30; Stop 04/20/17 at 10:31; Status DC Diclofenac Sodium (Voltaren) 1 cedric BID TP ; Start 04/20/17 at 21:00; Status UNV Metoprolol Tartrate (Lopressor) 12.5 mg BID PEG ; Start 04/21/17 at 21:00; Stop 04/21/17 at 21:00; Status DC Amiodarone HCl (Cordarone) 200 mg DAILY PEG ; Start 04/22/17 at 09:00; Stop at 09:00; Status DC Active Scripts Active Reported Ascorbic Acid 500 Mg Tablet 500 Mg PO Tumersaid Tablet (Turm/Ging/Ej/Yuc/Darrick/Tatyana/Hor) 1 Each Tablet 1 Each PO Simethicone 80 Mg Tab.chew 80 Mg PO Pantoprazole Sodium 40 Mg Tablet.dr 1 Tab PO DAILY J-Zqckva-W-Cysteine (Acetylcysteine) 600 Mg Capsule 600 Mg PO Modafinil 100 Mg Tablet 100 Mg PO Miralax (Polyethylene Glycol 3350) 17 Gm Powd.pack 1 Packet PO DAILY Metoprolol Tartrate 25 Mg Tablet 1 Tab PO BID Melatonin 3 Mg Tablet 5 Mg PO Lanoxin (Digoxin) 250 Mcg Tablet 1 Tab PO DAILY Culturelle (Lactobacillus Rhamnosus Gg) 1 Each Capsule 1 Each PO Hydrocortisone 1.5 Gm Cream.pack 1.5 Gm TP Guaifenesin Ac Cough Syrup (Guaifenesin/Codeine Phosphate) 473 Ml Liquid 5 Ml PO Q4HRS Gabapentin 600 Mg Tablet 600 Mg PO TID Flonase Allergy Relief (Fluticasone Propionate) 9.9 Ml [place].susp 2 Sprays NS DAILY Eliquis (Apixaban) 5 Mg Tablet 5 Mg PO Voltaren (Diclofenac Sodium) 100 Gm Gel..gram. 1 Gm TP QID Peridex (Chlorhexidine Gluconate) 15 Ml Mouthwash 15 Ml PO BID Buspirone Hcl 5 Mg Tablet 1 Tab PO BID Amiodarone Hcl 200 Mg Tablet 1 Tab PO DAILY Acetaminophen 500 Mg Tablet 1 Tab PO BID Vitals/I & O Vital Sign - Last 24 Hours 04/21/17 04/21/17 04/21/17 04/21/17 09:00 09:00 10:52 11:06 Temp 98.3 98.3 Pulse 56 56 117 Resp 18 B/P (MAP) 126/61 126/61 136/77 (96) Pulse Ox 95 O2 Delivery Nasal Cannula Room Air O2 Flow Rate 2.0 04/21/17 04/21/17 04/21/17 04/22/17 15:00 19:15 23:15 03:18 Temp 98.7 97.9 98.2 98.7 98.7 97.9 98.2 98.7 Pulse 89 61 63 57 Resp 18 16 14 20 B/P (MAP) 119/52 (74) 117/57 (77) 122/62 (82) 117/60 (79) Pulse Ox 93 94 92 93 O2 Delivery Room Air Room Air Room Air Room Air 04/22/17 07:00 Temp 98.2 98.2 Pulse 58 Resp 18 B/P (MAP) 123/62 (82) Pulse Ox 93 O2 Delivery Room Air JUANPABLO CRANDALL MD Apr 22, 2017 08:37
[2017-04-22] MEDS: PANTOPRAZOLE IV PUSH 40 MG VIAL. IVP SCH (08:46)
[2017-04-22] MEDS: APIXABAN 5 MG TABLET. PO SCH (08:47)
[2017-04-22] MEDS: LACTOBACILLUS ACIDOPH & BULGAR 1 TABLET. PO SCH (08:47)
[2017-04-22] MEDS: SIMETHICONE 80 MG TAB.CHEW PEG SCH ×2 (08:47→13:26)
[2017-04-22] MEDS: ASCORBIC ACID 500 MG TABLET PEG SCH (08:47)
[2017-04-22] MEDS: GABAPENTIN 250 MG/5 ML ORAL SOLUTION. PEG SCH ×2 (08:49→13:26)
--- NOTE | 2017-04-22 08:52 | EKG ---
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
[2017-04-22] MEDS: POLYETHYLENE GLYCOL 3350 17 GM PACKET. PO SCH (08:56)
[2017-04-22] MEDS: FLUTICASONE 50MCG/NASAL SPRAY 16GM BOTTLE. NS SCH (09:00)
[2017-04-22] MEDS: DICLOFENAC SODIUM 1% TOPICAL GEL 100GM TUBE. TP SCH ×2 (09:00→13:34)
[2017-04-22] MEDS: CHLORHEXIDINE 0.12% 15 ML MOUTHWASH. SWSP SCH (09:00)
[2017-04-22] MEDS ORDERED: AMIODARONE HCL 200 MG TABLET. PEG SCH (09:00)
[2017-04-22 10:43] VITALS: BP 119/67
--- NOTE | 2017-04-22 10:45 | DS ---
DATE OF DISCHARGE: 04/22/2017 HOSPITAL COURSE: The patient is an 82-year-old male patient, a resident at [facility], who was admitted with severe hyponatremia with a serum sodium down to 118. It transpired that he was started recently on Prozac that was discontinued. We did start him initially on normal saline. 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 Eventually, he was put on a fluid restriction, and his sodium continues to go slowly up, yesterday it was 128. Unfortunately, the patient refused to allow us to check his lab this morning, he was seen also in consultation by Dr. Aragon for his severe pain in his right knee joint with fixed flexion contracture, for which he injected with cortisone and apparently did well with that. He was seen also by Dr. Damian Rebollar for pain management who increased his Neurontin to 800 mg 3 times a day for his thalamic syndrome with left-sided pain. He was also seen by the speech therapist. Unfortunately, he continued to aspirate; however, he is scheduled for fiberoptic endoscopic evaluation of swallowing tomorrow at [facility]. While at the hospital, he was noted to have persistent sinus bradycardia, and he was on metoprolol, amiodarone and digoxin. He was seen in consultation by the customer marketing assistant who recommended discontinuation of digoxin and cutting down his metoprolol 12.5 twice a day, keeping amiodarone as is. His echocardiogram showed that his left ventricular systolic function was normal with normal wall motion. The patient stabilized. We will discharge him back to [facility]. I have spoken with Deborah, the DO in there and explained all the changes in his medication and that we are going to keep him on fluid restriction and only 150 mL of his formula with minimal amount of water. We will check his basic metabolic profile on Thursday, Thursday, Thursday to make sure that the sodium is going in the right direction. We will continue obviously with nutritional support and physical and occupational therapy as well as speech therapy. PHYSICAL EXAMINATION: GENERAL: When I examined today, he was resting, slightly propped up in bed, in no apparent respiratory distress, slightly pale, not jaundiced or cyanosed or thyromegaly. No jugular venous distention. No limb edema. VITAL SIGNS: His heart rate was 58, blood pressure was 123/62, temperature was 98.2, respiratory rate was 18 and oxygen saturation was 93%. EXAMINATION OF HEAD, EYES, EARS, NOSE AND THROAT: Showed normocephalic, atraumatic. NECK: Supple. HEART: Showed normal first and second heart sounds with no gallop, rub or murmur. CHEST: Clear to auscultation. No crepitation or rhonchi. ABDOMEN: Distended, soft, with gastrostomy tube in place. There is no guarding or rigidity. No organomegaly. Hernial orifices intact. Bowel sounds normal. NEUROLOGIC: He was awake, alert, responding appropriately. He has left-sided facial droop and left-sided hemiplegia with flexion contracture of his left upper and left lower extremity. LABORATORY DATA: Showed his most recent white cell count was 5900, hemoglobin 13.5, hematocrit 40, MCV 93 and platelet count of 184,000. His chemistry as of yesterday showed a serum sodium of 128, potassium 4.6, chloride 94, bicarbonate 31, anion gap of 3, BUN 15, creatinine 0.8, estimated GFR was 93 mL per minute, his glucose 127, calcium was 8.9. He will be discharged back to [facility] to continue on Tylenol 650 mg every 4 hours ____ 600 mg daily, amiodarone 200 mg once a day, apixaban 5 mg twice a day, ascorbic acid 500 mg once a day. Chlorhexidine gluconate for Peridex 15 mL swish and spit twice a day. Diclofenac sodium for Voltaren gel, applied topically 4 times a day. Flonase 2 sprays to each nostril once a day, hydrocortisone cream applied topically once a day. Lactobacillus rhamnosus for Culturelle 1 capsule p.o. daily, melatonin 5 mg at bedtime, Protonix 40 mg daily, polyethylene glycol 17 grams once a day, simethicone 80 mg chewable tablet 3 times a day. We discontinued his buspirone, digoxin. His gabapentin was increased to 800 mg 3 times a day. We have discontinued his Mucinex with codeine. His metoprolol was cut down to 12.5 mg twice a day, and his modafinil was discontinued. FINAL DISCHARGE DIAGNOSES: 1. Hyponatremia, most likely due to inappropriate antidiuretic hormone secretion induced by Prozac that was discontinued. 2. Atrial fibrillation, with marked sinus bradycardia, for which we continued his amiodarone, cut down on metoprolol and discontinued digoxin. He is well anticoagulated on apixaban. 3. Right middle cerebral artery territory infarct with left-sided hemiplegia, with flexion contraction in both left upper and left lower extremity. He has also severe thalamic syndrome with pain involving his both upper and left lower extremity, for which he had increased his gabapentin 800 mg 3 times a day. 4. Dysphagia, which has a gastrostomy tube placed. He is currently on tube feeding. He failed his bedside swallowing yesterday. 5. Severe pain in his right knee due to severe osteoarthritis with flexion contracture of his right lower extremity. He was successfully injected with steroids by Dr. Aragon. JENNIFER MCKEON MD DR: MARIANA/zhou JOB#: [id number] / [id number]
--- NOTE | 2017-04-22 11:42 | PDOC ---
CARDIO Progress Notes Date and Time Date of Service 04/22/2017 Time of Evaluation 1130 Subjective Subjective: No Chest Pain, No shortness of breath, No Palpitations Vitals Vitals Vital Signs Date Time Temp Pulse Resp B/P (MAP) Pulse Ox O2 Delivery O2 Flow Rate FiO2 04/22/17 10:43 98.8 63 18 119/67 (84) 100 Room Air 98.8 04/22/17 08:00 2.0 Weight Weight [ ] Input and Output Intake and Output Intake and Output 04/23/17 07:00 Intake Total 5 ml Balance 5 ml Tube Feeding 5 ml Review of Systems Constitutional: yes: weakness, alert Ears/Nose/Throat: Yes: no symptom reported Eyes: Yes: no symptom reported Cardiovascular: Yes no symptom reported Gastrointestional: Yes: no symptom reported Musculoskeletal: Yes: no symptom reported Physical Exam HEENT: Neck Supple W Full Motion Chest: Symmetric LUNGS: Clear to Auscultation Heart: S1S2, RRR (SR) Abdomen: Soft N/T Extremities: No Calf Tenderness Neurology: alert, oriented, follow commands Assessment Assessment 1. Asymptomatic Sinus bradycardia: No pauses. QTc much better. No further bradycardic episodes overnight after med adjustment. 2. PAFIB: ablation in the past. SR. TTE with normal EF and wall motion 3. 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 Nephrology following. 4. CVA: with right side hemiparesis Recommendations 1. No immediate need for pacemaker. Completely DC digoxin. Restart amiodarone and lower dose metoprolol. 2. Per staff, pt fur cutter is from , follow up with them in 2 weeks. JORDI VELAZQUEZ APRN Apr 22, 2017 11:42
[2017-04-22] MEDS ORDERED: AMIODARONE HCL 200 MG TABLET. PO SCH (12:00)
[2017-04-22] MEDS ORDERED: METOPROLOL TART IMMED RELEASE 25 MG TABLET. PO SCH (12:00)
[2017-04-22 13:26] VITALS: BP 119/67
== END 2017-04-22 14:30 | DRG 644 ==
LOC: ER 20:31 → 1 WEST ICU 21:30 → 5 NORTH 04-19 16:11
PROVIDERS: ADMIT Internal Medicine; ATTEND Internal Medicine
DX: E22.2 Syndrome of inappropriate secretion of antidiuretic hormone (principal); G81.91 Hemiplegia, unspecified affecting right dominant side; I48.91 Unspecified atrial fibrillation; G40.909 Epilepsy, unspecified, not intractable, without status epilepticus; R00.1 Bradycardia, unspecified; Z93.1 Gastrostomy status; E87.1 Hypo-osmolality and hyponatremia; I10 Essential (primary) hypertension; G89.0 Central pain syndrome; I69.354 Hemiplegia and hemiparesis following cerebral infarction affecting left non-dominant side; M19.90 Unspecified osteoarthritis, unspecified site; M89.0 Algoneurodystrophy; K21.9 Gastro-esophageal reflux disease without esophagitis; G51.0 Bell's palsy; M17.0 Bilateral primary osteoarthritis of knee; Z79.899 Other long term (current) drug therapy; Z79.01 Long term (current) use of anticoagulants; Z82.49 Family history of ischemic heart disease and other diseases of the circulatory system; Z87.11 Personal history of peptic ulcer disease; Z87.01 Personal history of pneumonia (recurrent); Z88.1 Allergy status to other antibiotic agents; Z88.8 Allergy status to other drugs, medicaments and biological substances
CPT/HCPCS: 36415; 71010; 80048; 80076; 80307; 81001; 82533; 82553; 82570; 83735; 83880; 83930; 83935; 84295; 84300; 84436; 84439; 84443; 84480; 84484; 84550; 85025; 85610; 87641; 93005; 93306; 96360; C9113; J1030; J3010; J3490; J7030; 92526; 92610; 99285-25; G0479